=== PATIENT | male | born 1965 | race Caucasian/White ===

== ENCOUNTER 2020-04-07 06:15 | Outpatient (REF) | payer OTHER, SELFPAY | END 2020-04-07 06:16 | disposition home or self-care (01) | LOC: HO.LAB 06:15 | PROVIDERS: PCP Internal Medicine; Visit Provider Internal Medicine | DX: Z20.822 Contact with and (suspected) exposure to COVID-19 (principal) | CPT/HCPCS: 36415; C9803; U0003 ==

== ENCOUNTER 2020-04-30 09:16 | Outpatient (REF) | payer OTHER, SELFPAY | END 2020-04-30 09:17 | disposition home or self-care (01) | LOC: HO.LAB 09:16 | PROVIDERS: Visit Provider Internal Medicine | DX: Z20.822 Contact with and (suspected) exposure to COVID-19 (principal) | CPT/HCPCS: 36415; C9803; U0003; U0005 ==

== ENCOUNTER 2020-05-10 09:14 | Outpatient (REF) | payer OTHER, SELFPAY | END 2020-05-10 09:15 | disposition home or self-care (01) | LOC: HO.LAB 09:14 | PROVIDERS: Visit Provider Internal Medicine | DX: Z20.822 Contact with and (suspected) exposure to COVID-19 (principal) | CPT/HCPCS: 36415; C9803; U0003; U0005 ==

== ENCOUNTER → 2020-06-04 14:43 | Outpatient (BNVA) | payer OTHER, SELFPAY | PROVIDERS: PCP Internal Medicine; Visit Provider Internal Medicine ==

== ENCOUNTER → 2020-06-05 13:46 | Outpatient (BNVA) | payer OTHER, SELFPAY | PROVIDERS: PCP Internal Medicine; Visit Provider Nurse Practitioner Psychiatric/Mental Health | DX: F11.99 Opioid use, unspecified with unspecified opioid-induced disorder (principal) | CPT/HCPCS: 80305 ==

== ENCOUNTER → 2020-06-12 13:36 | Outpatient (BNVA) | payer OTHER, SELFPAY | PROVIDERS: PCP Internal Medicine; Visit Provider Nurse Practitioner Psychiatric/Mental Health | DX: F11.99 Opioid use, unspecified with unspecified opioid-induced disorder (principal) | CPT/HCPCS: 80305 ==

== ENCOUNTER 2020-06-14 08:18 | Outpatient (REF) | payer OTHER, SELFPAY ==
[2020-06-14 10:27] LABS: Alanine Aminotransferase 32 U/L (0-40); Albumin Level 4.1 g/dL (3.5-5.0); Alkaline Phosphatase 57 U/L (39-117); Aspartate Amino Transferase 41 U/L (5-37); Bilirubin Direct 0.3 mg/dL (0.0-0.5); Bilirubin Total 0.5 mg/dL (0.0-1.0); Total Protein 6.7 g/dL (6.5-8.0)
[2020-06-16 03:53] LABS: HBsAGNum1 0.19 S/CO (0.00-0.99); HIV AB/AG Nonreactive (Nonreactive); HIV Num 1 0.06 S/CO (0.00-0.99); Hepatitis B Surface Antigen Negative (Negative)
[2020-06-16 04:05] LABS: HBS Num1 5.43 mIU/mL (0-7.99); HBc Num1 0.88 S/CO (0.00-0.79); ~HepC Num1 0.08 S/CO (0.00-0.79); ~Hepatitis B Surface Antibody NONREACTIVE (Nonreactive); ~Hepatitis C Antibody Nonreactive (Nonreactive)
[2020-06-16 04:57] LABS: HBc Num2 0.88 S/CO; HBc Num3 0.91 S/CO; Hepatitis B Core Antibody Nonreactive (Nonreactive)
[2020-06-18 08:55] LABS: Hepatitis A Antibody IgM 0.11 Index (0-0.79); ~Hepatitis A Antibody IgM Nonreactive (Nonreactive)
== END 2020-06-14 08:19 | disposition home or self-care (01) ==
LOC: HO.LAB 08:18
PROVIDERS: PCP Internal Medicine; Visit Provider Nurse Practitioner Psychiatric/Mental Health
DX: Z79.899 Other long term (current) drug therapy (principal); Z11.3 Encounter for screening for infections with a predominantly sexual mode of transmission
CPT/HCPCS: 36415; 80076; 86704; 86706; 86709; 86803; 87340; 87389

== ENCOUNTER → 2020-06-19 13:49 | Outpatient (BNVA) | payer OTHER, SELFPAY | PROVIDERS: PCP Internal Medicine; Visit Provider Nurse Practitioner Psychiatric/Mental Health | DX: F11.90 Opioid use, unspecified, uncomplicated (principal); Z51.81 Encounter for therapeutic drug level monitoring | CPT/HCPCS: 80305 ==

== ENCOUNTER → 2020-06-26 10:49 | Outpatient (BNVA) | payer OTHER, SELFPAY | PROVIDERS: PCP Internal Medicine; Visit Provider Nurse Practitioner Psychiatric/Mental Health | DX: F11.99 Opioid use, unspecified with unspecified opioid-induced disorder (principal) | CPT/HCPCS: 80305 ==

== ENCOUNTER → 2020-06-27 11:01 | Outpatient (BNVA) | payer OTHER, SELFPAY | PROVIDERS: Visit Provider Internal Medicine ==

== ENCOUNTER → 2020-07-03 11:20 | Outpatient (BNVA) | payer OTHER, SELFPAY | PROVIDERS: Visit Provider Nurse Practitioner Psychiatric/Mental Health | DX: Z51.81 Encounter for therapeutic drug level monitoring (principal) | CPT/HCPCS: 80305 ==

== ENCOUNTER 2020-07-10 11:25 | Outpatient (REF) | payer OTHER, SELFPAY ==
[2020-07-10 15:33] LABS: MANUAL DIFF FLAG NO
[2020-07-10 15:39] LABS: Basophils Absolute Auto 0.1 X10*3/uL (0.0-0.2); Basophils Percent Auto 1.1 % (0-2); Eosinophils Absolute Auto 0.1 X10*3/uL (0.0-0.4); Eosinophils Percent Auto 1.5 % (0-4); Hematocrit 44.3 % (42-52); Hemoglobin 14.7 g/dl (14.0-18.0); Imm Gran Abs Auto 0.01 X10*3/uL (0.00-0.03); Imm Gran Pct Auto 0.2 % (0.0-0.4); Lymphocytes Absolute Auto 1.3 X10*3/uL (1.2-4.9); Lymphocytes Percent Auto 28.3 % (20-40); Mean Corpuscular HGB Conc 33.2 g/dl (31.0-36.0); Mean Corpuscular Hemoglobin 31.3 pg (27.0-33.0); Mean Corpuscular Volume 94.3 fL (80-98); Mean Platelet Volume 10.8 fL (9.4-12.4); Monocytes Absolute Auto 0.5 X10*3/uL (0.1-1.2); Monocytes Percent Auto 11.2 % (2-11); Neutrophils Absolute Auto 2.7 X10*3/uL (2.0-8.3); Neutrophils Percent Auto 57.7 % (45-73); Platelet Count 258 X10*3/uL (160-400); Red Cell Distribution Width 12.1 % (11.0-16.0); White Blood Count 4.7 X10*3/uL (4.8-10.8)
[2020-07-10 16:04] LABS: Alanine Aminotransferase 46 U/L (0-40); Albumin Level 4.6 g/dL (3.5-5.0); Alkaline Phosphatase 70 U/L (39-117); Anion Gap 14 (12-20); Aspartate Amino Transferase 39 U/L (5-37); Bilirubin Total 0.8 mg/dL (0.0-1.0); Blood Urea Nitrogen 19 mg/dL (9-16); Calcium 9.3 mg/dL (8.4-10.2); Carbon Dioxide 28 mmol/L (22-29); Chloride 101 mmol/L (96-108); Cholesterol 257 mg/dL; Estimated Glomerular Filt Rate > 60; Glucose Random 97 mg/dL (60-115); HDL Cholesterol 90 mg/dL; LDL Cholesterol Calculated 158 mg/dl; Potassium 4.2 mmol/L (3.3-5.1); Sodium 139 mmol/L (135-145); Total Protein 7.7 g/dL (6.5-8.0); Triglycerides 45 mg/dL
[2020-07-10 16:23] LABS: Free T4 (Free Thyroxine) 0.76 ng/dL (0.71-1.85); Prostate Specific Antigen Scr 0.51 ng/mL (<0.05-4.0); Thyroid Stimulating Hormone 0.54 uIU/mL (0.32-4.0)
[2020-07-10 16:32] LABS: Folate 15.3 ng/mL (> or = 4.0); Vitamin B12 391 pg/mL (200-900)
== END 2020-07-10 11:26 | disposition home or self-care (01) ==
LOC: HO.LAB 11:25
PROVIDERS: Absent Provider Internal Medicine; PCP Internal Medicine; Visit Provider Nurse Practitioner Psychiatric/Mental Health
DX: Z12.5 Encounter for screening for malignant neoplasm of prostate (principal); E78.00 Pure hypercholesterolemia, unspecified; I10 Essential (primary) hypertension; Z79.899 Other long term (current) drug therapy
CPT/HCPCS: 36415; 80053; 80061; 80305; 82607; 82746; 84153; 84439; 84443; 85025

== ENCOUNTER → 2020-07-24 11:35 | Outpatient (BNVA) | payer OTHER, SELFPAY | PROVIDERS: PCP Internal Medicine; Visit Provider Nurse Practitioner Psychiatric/Mental Health | DX: F11.99 Opioid use, unspecified with unspecified opioid-induced disorder (principal) | CPT/HCPCS: 80305 ==

== ENCOUNTER → 2020-08-08 11:40 | Outpatient (BNVA) | payer OTHER, SELFPAY | PROVIDERS: PCP Internal Medicine; Visit Provider Nurse Practitioner Psychiatric/Mental Health | DX: Z51.81 Encounter for therapeutic drug level monitoring (principal) | CPT/HCPCS: 80305 ==

== ENCOUNTER → 2020-08-14 11:17 | Outpatient (BNVA) | payer OTHER, SELFPAY | PROVIDERS: Visit Provider Nurse Practitioner Psychiatric/Mental Health ==

== ENCOUNTER → 2020-08-28 11:25 | Outpatient (BNVA) | payer OTHER, SELFPAY | PROVIDERS: Visit Provider Nurse Practitioner Psychiatric/Mental Health | DX: F11.99 Opioid use, unspecified with unspecified opioid-induced disorder (principal) | CPT/HCPCS: 80305 ==

== ENCOUNTER → 2020-09-11 10:37 | Outpatient (BNVA) | payer OTHER, SELFPAY | PROVIDERS: Visit Provider Nurse Practitioner Psychiatric/Mental Health | DX: Z51.81 Encounter for therapeutic drug level monitoring (principal); F11.99 Opioid use, unspecified with unspecified opioid-induced disorder | CPT/HCPCS: 80305 ==

== ENCOUNTER 2020-09-24 09:10 | Outpatient (REF) | payer OTHER, SELFPAY ==
--- NOTE | ~2020-09-24 | US_ITS ---
EXAMINATION: US ABDOMEN LIMITED CLINICAL INFORMATION: Elevated LFTs. COMPARISON: Renal ultrasound 09/03/2009. TECHNIQUE: Real-time imaging of the right upper quadrant abdominal viscera. FINDINGS: PANCREAS: Normal. LIVER: Normal. The liver is normal in size. The liver contour is normal. Parenchymal echogenicity is normal. No focal hepatic lesion. There is no intrahepatic biliary duct dilatation seen. GALLBLADDER: Gallbladder wall thickness of 0.24 cm. The gallbladder is physiologically distended without evidence of stones, sludge, polyps, wall thickening or pericholecystic fluid. COMMON BILE DUCT: Normal in caliber measuring 0.6 cm in diameter. RIGHT KIDNEY: No hydronephrosis or renal calculi. The kidney measures 13.0 cm in maximum dimension. There is a complex septated anechoic cyst lower pole measuring 5.2 x 3.9 x 3.3 cm. There is an echogenic lesion in the lower pole measuring 0.9 x 0.9 x 0.8 cm. FREE FLUID: None. US/US abdomen limited IMPRESSION: Complex septated cyst lower pole left kidney. 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
== END 2020-09-24 09:11 | disposition home or self-care (01) ==
LOC: HO.US 09:10
PROVIDERS: PCP Internal Medicine; Visit Provider Internal Medicine
DX: R79.89 Other specified abnormal findings of blood chemistry (principal)
CPT/HCPCS: 76705

== ENCOUNTER → 2020-09-25 10:56 | Outpatient (BNVA) | payer OTHER, SELFPAY | PROVIDERS: PCP Internal Medicine; Visit Provider Nurse Practitioner Psychiatric/Mental Health | DX: F11.99 Opioid use, unspecified with unspecified opioid-induced disorder (principal) | CPT/HCPCS: 80305 ==

== ENCOUNTER → 2020-10-09 11:41 | Outpatient (BNVA) | payer OTHER, SELFPAY | PROVIDERS: Visit Provider Nurse Practitioner Psychiatric/Mental Health | DX: Z51.81 Encounter for therapeutic drug level monitoring (principal); F11.99 Opioid use, unspecified with unspecified opioid-induced disorder | CPT/HCPCS: 80305 ==

== ENCOUNTER → 2020-10-30 11:45 | Outpatient (BNVA) | payer OTHER, SELFPAY | PROVIDERS: PCP Internal Medicine; Visit Provider Nurse Practitioner Psychiatric/Mental Health | DX: F11.99 Opioid use, unspecified with unspecified opioid-induced disorder (principal) | CPT/HCPCS: 80305 ==

== ENCOUNTER → 2020-11-20 11:46 | Outpatient (BNVA) | payer OTHER, SELFPAY | PROVIDERS: Visit Provider Nurse Practitioner Psychiatric/Mental Health | DX: F11.99 Opioid use, unspecified with unspecified opioid-induced disorder (principal); E78.00 Pure hypercholesterolemia, unspecified; I10 Essential (primary) hypertension; E55.9 Vitamin D deficiency, unspecified; F41.8 Other specified anxiety disorders | CPT/HCPCS: 80305 ==

== ENCOUNTER → 2020-12-11 10:58 | Outpatient (BNVA) | payer OTHER, SELFPAY | PROVIDERS: Visit Provider Nurse Practitioner Psychiatric/Mental Health | DX: F11.99 Opioid use, unspecified with unspecified opioid-induced disorder (principal); F41.8 Other specified anxiety disorders; M54.5 Low back pain; J44.9 Chronic obstructive pulmonary disease, unspecified; I10 Essential (primary) hypertension; E78.00 Pure hypercholesterolemia, unspecified; E55.9 Vitamin D deficiency, unspecified; Z51.81 Encounter for therapeutic drug level monitoring | CPT/HCPCS: 80305 ==

== ENCOUNTER → 2020-12-25 11:25 | Outpatient (BNVA) | payer OTHER, SELFPAY | PROVIDERS: PCP Internal Medicine ==

== ENCOUNTER 2020-12-31 10:41 | Outpatient (REF) | payer OTHER, SELFPAY ==
[2020-12-31 14:12] LABS: Blood Urea Nitrogen 13 mg/dL (9-16); Estimated Glomerular Filt Rate > 60
[2020-12-31 14:33] LABS: Prostate Specific Antigen Scr 0.28 ng/mL (<0.05-4.0)
== END 2020-12-31 10:42 | disposition home or self-care (01) ==
LOC: HO.10HDL 10:41
DX: Z12.5 Encounter for screening for malignant neoplasm of prostate (principal); N28.1 Cyst of kidney, acquired; R30.0 Dysuria
CPT/HCPCS: 36415; 82565; 84153; 84520

== ENCOUNTER → 2021-01-01 09:05 | Outpatient (BNVA) | payer OTHER, SELFPAY | PROVIDERS: Visit Provider Nurse Practitioner Psychiatric/Mental Health | DX: Z51.81 Encounter for therapeutic drug level monitoring (principal); F11.90 Opioid use, unspecified, uncomplicated | CPT/HCPCS: 80305 ==

== ENCOUNTER → 2021-01-29 08:57 | Outpatient (BNVA) | payer OTHER, SELFPAY | PROVIDERS: Visit Provider Nurse Practitioner Psychiatric/Mental Health | DX: F11.20 Opioid dependence, uncomplicated (principal); Z51.81 Encounter for therapeutic drug level monitoring; Z79.899 Other long term (current) drug therapy | CPT/HCPCS: 80305 ==

== ENCOUNTER → 2021-02-26 13:42 | Outpatient (BNVA) | payer OTHER, SELFPAY | PROVIDERS: Visit Provider Nurse Practitioner Psychiatric/Mental Health | DX: Z51.81 Encounter for therapeutic drug level monitoring (principal); F11.20 Opioid dependence, uncomplicated | CPT/HCPCS: 80305 ==

== ENCOUNTER → 2021-03-26 09:37 | Outpatient (BNVA) | payer OTHER, SELFPAY | PROVIDERS: Visit Provider Nurse Practitioner Psychiatric/Mental Health | DX: Z51.81 Encounter for therapeutic drug level monitoring (principal); F11.20 Opioid dependence, uncomplicated | CPT/HCPCS: 80305 ==

== ENCOUNTER → 2021-04-23 10:43 | Outpatient (BNVA) | payer OTHER, SELFPAY | PROVIDERS: Visit Provider Nurse Practitioner Psychiatric/Mental Health | DX: Z51.81 Encounter for therapeutic drug level monitoring (principal); F11.20 Opioid dependence, uncomplicated | CPT/HCPCS: 80305 ==

== ENCOUNTER 2021-05-13 13:18 | Outpatient (REF) | payer OTHER, SELFPAY ==
--- NOTE | ~2021-05-13 | US_ITS ---
EXAMINATION: US RETROPERITONEAL LIMITED (RENAL ONLY) CLINICAL INFORMATION: Renal cyst. COMPARISON: Ultrasound abdomen limited 09/24/2020. Ultrasound renal 09/03/2009. TECHNIQUE: Real-time imaging of the kidneys. FINDINGS: RIGHT KIDNEY: 12.8 x 4.7 x 6.2 cm (SAG x AP x TRV). The kidney is normal in size, contour, and echogenicity. Renal cortical thickness is normal. No renal calculi or hydronephrosis. A 4.7 x 2.8 x 2.8 cm cystic left lower pole renal mass with multiple, greater than 3 septations, previously 5.2 x 3.3 x 3.7 cm, slightly decreased in size. A 0.9 x 0.9 x 0.7 cm echogenic right lower pole renal mass, previously 0.9 x 0.8 x 0.9 cm not significantly changed in size. No internal vascularity was demonstrated on the prior ultrasound. LEFT KIDNEY: 11.8 x 6.4 x 5.7 cm (SAG x AP x TRV). The kidney is normal in size, contour, and echogenicity. Renal cortical thickness is normal. No focal parenchymal lesions or hydronephrosis. A 0.8 cm nonobstructing left lower pole renal stone. US/US renal BI IMPRESSION: A 4.2 cm cystic left lower pole renal mass with greater than 3 septations, slightly decreased in size from prior. Recommend annual follow-up ultrasound for a total of 5 years to assess stability. A 0.9 cm echogenic right renal mass with not definitely changed in size, which may reflect an angiomyolipoma. A new 0.8 cm nonobstructing left lower pole renal stone.
== END 2021-05-13 13:19 | disposition home or self-care (01) ==
LOC: HO.US 13:18
PROVIDERS: PCP Internal Medicine
DX: N28.1 Cyst of kidney, acquired (principal)
CPT/HCPCS: 76775

== ENCOUNTER → 2021-05-14 13:28 | Outpatient (BNVA) | payer OTHER, SELFPAY | PROVIDERS: Visit Provider Nurse Practitioner Psychiatric/Mental Health | DX: Z51.81 Encounter for therapeutic drug level monitoring (principal); F11.20 Opioid dependence, uncomplicated | CPT/HCPCS: 80305 ==

== ENCOUNTER → 2021-06-11 14:04 | Outpatient (BNVA) | payer OTHER, SELFPAY | PROVIDERS: Visit Provider Nurse Practitioner Psychiatric/Mental Health | DX: F11.20 Opioid dependence, uncomplicated (principal); Z51.81 Encounter for therapeutic drug level monitoring; Z79.899 Other long term (current) drug therapy | CPT/HCPCS: 80305 ==

== ENCOUNTER 2021-06-16 09:16 | Outpatient (REF) | payer OTHER, SELFPAY ==
[2021-06-16 09:48] LABS: MANUAL DIFF FLAG NO
[2021-06-16 10:04] LABS: Basophils Absolute Auto 0.1 X10*3/uL (0.0-0.2); Basophils Percent Auto 1.3 % (0-2); Eosinophils Absolute Auto 0.2 X10*3/uL (0.0-0.4); Eosinophils Percent Auto 5.2 % (0-4); Hematocrit 39.3 % (42.0-52.0); Hemoglobin 13.2 g/dl (14.0-18.0); Lymphocytes Absolute Auto 1.3 X10*3/uL (1.2-4.9); Lymphocytes Percent Auto 34.3 % (20-40); Mean Corpuscular HGB Conc 33.6 g/dl (31.0-36.0); Mean Corpuscular Hemoglobin 30.5 pg (27.0-33.0); Mean Corpuscular Volume 90.8 fL (80.0-98.0); Mean Platelet Volume 10.4 fL (9.4-12.4); Monocytes Absolute Auto 0.4 X10*3/uL (0.1-1.2); Monocytes Percent Auto 10.6 % (2-11); Neutrophils Absolute Auto 1.9 x10*3/uL (2.0-8.3); Neutrophils Percent Auto 48.6 % (45-73); Platelet Count 192 X10*3/uL (160-400); Red Blood Count 4.33 X10*6/uL (4.60-5.80); Red Cell Distribution Width 12.6 % (11.0-16.0); White Blood Count 3.9 X10*3/uL (4.8-10.8)
[2021-06-16 10:53] LABS: Gamma Glutamyl Transpeptidase 52 U/L (11-51)
[2021-06-16 11:03] LABS: Alanine Aminotransferase 26 U/L (0-40); Alkaline Phosphatase 64 U/L (39-117); Anion Gap 13 (12-20); Aspartate Amino Transferase 29 U/L (5-37); Bilirubin Total 0.7 mg/dL (0.0-1.0); Blood Urea Nitrogen 15 mg/dL (9-16); Calcium 9.5 mg/dL (8.4-10.2); Carbon Dioxide 28 mmol/L (22-29); Chloride 102 mmol/L (96-108); Cholesterol 189 mg/dL; Estimated Glomerular Filt Rate > 60; Glucose Random 104 mg/dL (60-115); HDL Cholesterol 69 mg/dL; LDL Cholesterol Calculated 108 mg/dl; Potassium 4.6 mmol/L (3.3-5.1); Sodium 138 mmol/L (135-145); Total Protein 6.8 g/dL (6.5-8.0); Triglycerides 60 mg/dL
[2021-06-16 11:24] LABS: Folate 13.5 ng/mL (> or = 4.0); Free T4 (Free Thyroxine) 0.78 ng/dL (0.71-1.85); Prostate Specific Antigen Scr 0.33 ng/mL (<0.05-4.0); Thyroid Stimulating Hormone 0.58 uIU/mL (0.32-4.0); Vitamin B12 342 pg/mL (200-900)
== END 2021-06-16 09:17 | disposition home or self-care (01) ==
LOC: HO.LAB 09:16
PROVIDERS: Nurse Practitioner Psychiatric/Mental Health; PCP Internal Medicine; Visit Provider Urology
DX: Z12.5 Encounter for screening for malignant neoplasm of prostate (principal); E78.00 Pure hypercholesterolemia, unspecified; I10 Essential (primary) hypertension; Z79.899 Other long term (current) drug therapy
CPT/HCPCS: 36415; 80053; 80061; 82607; 82746; 82977; 84153; 84439; 84443; 85025

== ENCOUNTER → 2021-06-24 12:51 | Outpatient (BNVA) | payer OTHER, SELFPAY | PROVIDERS: PCP Internal Medicine; Visit Provider Urology | DX: Z13.89 Encounter for screening for other disorder (principal) ==

== ENCOUNTER → 2021-07-09 14:05 | Outpatient (BNVA) | payer OTHER, SELFPAY | PROVIDERS: PCP Internal Medicine; Visit Provider Nurse Practitioner Psychiatric/Mental Health | DX: F11.99 Opioid use, unspecified with unspecified opioid-induced disorder (principal); M54.50 Low back pain, unspecified; J44.9 Chronic obstructive pulmonary disease, unspecified; I10 Essential (primary) hypertension; E78.00 Pure hypercholesterolemia, unspecified; E55.9 Vitamin D deficiency, unspecified; F41.8 Other specified anxiety disorders; Z51.81 Encounter for therapeutic drug level monitoring | CPT/HCPCS: 80305 ==

== ENCOUNTER → 2021-08-06 10:01 | Outpatient (BNVA) | payer OTHER, SELFPAY | PROVIDERS: PCP Internal Medicine; Visit Provider Nurse Practitioner Psychiatric/Mental Health | DX: Z51.81 Encounter for therapeutic drug level monitoring (principal); F11.20 Opioid dependence, uncomplicated | CPT/HCPCS: 80305 ==

== ENCOUNTER → 2021-09-03 11:17 | Outpatient (BNVA) | payer OTHER, SELFPAY | PROVIDERS: Visit Provider Nurse Practitioner Psychiatric/Mental Health | DX: Z51.81 Encounter for therapeutic drug level monitoring (principal); F11.21 Opioid dependence, in remission | CPT/HCPCS: 80305 ==

== ENCOUNTER → 2021-10-15 11:04 | Outpatient (BNVA) | payer OTHER, SELFPAY | PROVIDERS: PCP Internal Medicine; Visit Provider Nurse Practitioner Psychiatric/Mental Health | DX: Z51.81 Encounter for therapeutic drug level monitoring (principal); F11.21 Opioid dependence, in remission | CPT/HCPCS: 80305 ==

== ENCOUNTER 2021-10-19 12:25 | Outpatient (REF) | payer OTHER, SELFPAY ==
[2021-10-19 12:35] LABS: MANUAL DIFF FLAG NO
[2021-10-19 12:45] LABS: Basophils Percent Auto 0.5 % (0-2); Eosinophils Absolute Auto 0.2 X10*3/uL (0.0-0.4); Eosinophils Percent Auto 3.3 % (0-4); Hematocrit 40.2 % (42.0-52.0); Hemoglobin 13.6 g/dl (14.0-18.0); Imm Gran Abs Auto 0.01 X10*3/uL (0.00-0.03); Imm Gran Pct Auto 0.2 % (0.0-0.4); Immature Retic Fraction 7.1 % (2.3-13.4); Lymphocytes Absolute Auto 1.5 X10*3/uL (1.2-4.9); Lymphocytes Percent Auto 24.7 % (20-40); Mean Corpuscular HGB Conc 33.8 g/dl (31.0-36.0); Mean Corpuscular Hemoglobin 30.4 pg (27.0-33.0); Mean Corpuscular Volume 89.7 fL (80.0-98.0); Mean Platelet Volume 10.5 fL (9.4-12.4); Monocytes Absolute Auto 0.5 X10*3/uL (0.1-1.2); Monocytes Percent Auto 8.7 % (2-11); Neutrophils Absolute Auto 3.7 x10*3/uL (2.0-8.3); Neutrophils Percent Auto 62.6 % (45-73); Platelet Count 165 X10*3/uL (160-400); Red Blood Count 4.48 X10*6/uL (4.60-5.80); Red Cell Distribution Width 12.7 % (11.0-16.0); Retic HGB Equivalent 36.8 pg (30.0-35.0); Reticulocyte Percent 0.9 % (0.5-1.8); Reticulocytes Absolute 0.041 X10*6/uL (0.026-0.095)
[2021-10-19 13:11] LABS: Iron 115 mcg/dL (45-160); Percent Iron Saturation 33 % (15-50); Total Iron Binding Capacity 352 mcg/dL (228-428); Unsaturated Iron Binding 237 ug/dL
[2021-10-19 13:45] LABS: Folate 13.4 ng/mL (> or = 4.0); Vitamin B12 345 pg/mL (200-900)
[2021-10-19 13:50] LABS: Ferritin 193 ng/mL (20-250)
== END 2021-10-19 12:26 | disposition home or self-care (01) ==
LOC: HO.LAB 12:25
PROVIDERS: PCP Internal Medicine; Visit Provider Internal Medicine
DX: D64.9 Anemia, unspecified (principal)
CPT/HCPCS: 36415; 82607; 82728; 82746; 83540; 85025; 85045

== ENCOUNTER → 2022-01-05 09:49 | Outpatient (BNVA) | payer OTHER, SELFPAY | PROVIDERS: PCP Internal Medicine; Visit Provider Nurse Practitioner Psychiatric/Mental Health | DX: Z51.81 Encounter for therapeutic drug level monitoring (principal); F11.21 Opioid dependence, in remission | CPT/HCPCS: 80305 ==

== ENCOUNTER → 2022-03-02 09:48 | Outpatient (BNVA) | payer OTHER, SELFPAY | PROVIDERS: PCP Internal Medicine; Visit Provider Nurse Practitioner Psychiatric/Mental Health | DX: F11.21 Opioid dependence, in remission (principal); Z51.81 Encounter for therapeutic drug level monitoring; Z79.899 Other long term (current) drug therapy | CPT/HCPCS: 80305 ==

== ENCOUNTER → 2022-04-27 09:46 | Outpatient (BNVA) | payer OTHER, SELFPAY | PROVIDERS: PCP Internal Medicine; Visit Provider Nurse Practitioner Psychiatric/Mental Health | DX: Z51.81 Encounter for therapeutic drug level monitoring (principal); F11.21 Opioid dependence, in remission | CPT/HCPCS: 80305 ==

== ENCOUNTER → 2022-06-23 09:50 | Outpatient (BNVA) | payer OTHER, SELFPAY | PROVIDERS: PCP Internal Medicine; Visit Provider Nurse Practitioner Psychiatric/Mental Health | DX: F11.20 Opioid dependence, uncomplicated (principal); Z51.81 Encounter for therapeutic drug level monitoring; Z79.899 Other long term (current) drug therapy | CPT/HCPCS: 80305 ==

== ENCOUNTER → 2022-08-17 13:47 | Outpatient (BNVA) | payer OTHER, SELFPAY | PROVIDERS: PCP Internal Medicine; Visit Provider Nurse Practitioner Psychiatric/Mental Health | DX: Z51.81 Encounter for therapeutic drug level monitoring (principal); F11.21 Opioid dependence, in remission; Z79.899 Other long term (current) drug therapy | CPT/HCPCS: 80305 ==

== ENCOUNTER 2022-10-11 09:44 | Outpatient (AMB) | payer OTHER, SELFPAY ==
--- NOTE | 2022-10-11 09:47 | MHC.OFFVIS ---
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 Reports that he continues to do well with recovery. Denies any cravings. Reporting positive relationships with family. Still working full-time. No questions or concerns at this time. Stable on current Suboxone dose. [facility] Medical History Anxiety and depression COPD (chronic obstructive pulmonary disease) Hesitancy of micturition Hypercholesterolemia Hypertension Low back pain Opioid abuse Opioid use disorder Vitamin D deficiency Surgical History History of inguinal hernia repair Family History Father CHF (congestive heart failure) Hypertension CVD (cardiovascular disease) Mother Dementia Depression with anxiety Maternal Grandmother Diabetes Maternal Grandfather Cancer Brother In good health Son In good health Social History Housing: Apartment Alcohol intake: current Alcohol intake frequency: holidays/special occasions only Patient Tobacco Use Status: Never used Tobacco e-Cigarette/Vaping Use: Never Used Second Hand Smoke Exposure: No service: No Current occupational status: employed Cognitive needs: No Hearing needs: No Vision needs: No Review of Systems Const Reports as per HPI and Reports no additional complaints Physical Exam Vital Signs: Last Vital Signs Pulse 54 10/11/22 09:54 BP 136/88 10/11/22 09:54 Pulse Ox 98 10/11/22 09:54 Oxygen Delivery Method Room Air 10/11/22 09:54 Const General: cooperative and comfortable Nutritional Appearance: well nourished Orientation/consciousness: patient oriented x3 Limitations: no limitations Neuro General: patient oriented x3 Psych Appearance: grossly normal Mental Status: mental status grossly normal Speech and movement: Normal speech and movement present Affect: normal affect Attitude: cooperative Thought process: Normal thought process present Thought content: Normal thought content present Insight: Good insight present (Psych) Judgement: Good judgement present (Psych) Results AMB 14 Panel Urine Drug Screen Urine Marijuana (THC) Negative Last Edit by Diana Greene CMA on 10/11/22 09:56 Urine Cocaine Negative Last Edit by Diana Greene CMA on 10/11/22 09:56 Urine Morphine Negative Last Edit by Diana Greene CMA on 10/11/22 09:56 Urine Methamphetamine Negative Last Edit by Diana Greene CMA on 10/11/22 09:56 Urine Amphetamine Negative Last Edit by Diana Greene CMA on 10/11/22 09:56 Urine Benzodiazepine Negative Last Edit by Diana Greene CMA on 10/11/22 09:56 Urine Barbiturates Negative Last Edit by Diana Greene CMA on 10/11/22 09:56 Urine Methadone Negative Last Edit by Diana Greene CMA on 10/11/22 09:56 Urine Buprenorphine Positive Last Edit by Diana Greene CMA on 10/11/22 09:56 Urine Tricyclic Antidepressant Negative Last Edit by Diana Greene CMA on 10/11/22 09:56 Urine MDMA Negative Last Edit by Diana Greene CMA on 10/11/22 09:56 Urine Oxycodone Negative Last Edit by Diana Greene CMA on 10/11/22 09:56 Urine Phencyclidine Negative Last Edit by Diana Greene CMA on 10/11/22 09:56 Urine Propoxyphene Negative Last Edit by Diana Greene CMA on 10/11/22 09:56 Results Reviewed Results Reviewed: Laboratory Last Values POC Urine Buprenorphine Positive 10/11/22 09:50 POC Urine Morphine Negative 10/11/22 09:50 POC Urine Oxycodone Negative 10/11/22 09:50 POC Urine Methadone Negative 10/11/22 09:50 POC Urine Propoxyphene Negative 10/11/22 09:50 POC Urine Barbiturates Negative 10/11/22 09:50 POC U Tricyclic Antidpr Negative 10/11/22 09:50 POC Urine PCP Negative 10/11/22 09:50 POC Ur Amphetamines Negative 10/11/22 09:50 POC Ur Methamphetamine Negative 10/11/22 09:50 POC Urine MDMA Negative 10/11/22 09:50 POC Ur Benzodiazepine Negative 10/11/22 09:50 POC Urine Cocaine Negative 10/11/22 09:50 POC Ur Marijuana (THC) Negative 10/11/22 09:50 Assessment & Plan Assessment & Plan (1) Opioid use disorder, moderate, in sustained remission: Code(s): F11.21 - Opioid dependence, in remission Plan: Continue Suboxone at current dose Follow-up 3 months Encouraged to call office should he need anything before then Orders: Orders AMB 14 Panel Urine Drug Screen Today Z51.81 - Encounter for therapeutic drug level monitoring Medications: Refilled buprenorphine-naloxone 12-3 mg (Suboxone) 1 film buccal Q24H 30 ea 2RF Coding Level of Care Code Est Pt Level 3 (68670) Diagnoses Opioid use disorder, moderate, in sustained remission F11.21
[2022-10-11 09:54] VITALS: BP 136/88; PULSE 54; O2SAT 98
== END 2022-10-11 10:19 | disposition home or self-care (01) ==
LOC: HO.HCC 09:44
PROVIDERS: PCP Internal Medicine; Visit Provider Nurse Practitioner Psychiatric/Mental Health
DX: Z51.81 Encounter for therapeutic drug level monitoring (principal); F11.21 Opioid dependence, in remission
CPT/HCPCS: 99213

== ENCOUNTER → 2022-10-11 09:44 | Outpatient (BNVA) | payer OTHER, SELFPAY | PROVIDERS: PCP Internal Medicine; Visit Provider Nurse Practitioner Psychiatric/Mental Health | DX: F11.20 Opioid dependence, uncomplicated (principal); Z51.81 Encounter for therapeutic drug level monitoring | CPT/HCPCS: 80305 ==

== ENCOUNTER 2022-11-12 10:09 | Outpatient (AMB) | payer OTHER, SELFPAY ==
[2022-11-12 10:11] VITALS: BP 110/80; PULSE 61; O2SAT 98; BMI 25.2
--- NOTE | 2022-11-12 10:11 | MHC.PC.OV ---
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 Accompanied by: Self / Same As Patient Allergies No Known Allergies Allergy (Mild, Verified 11/12/22 11:07) NONE Medication List - Last Reconciled 11/12/22 by Artur Cornell MD buprenorphine-naloxone 12-3 mg (Suboxone) 1 film buccal Q24H sennosides (senna) 8.6 mg PO DAILY PRN tiotropium bromide 2.5 mcg/actuation (Spiriva Respimat) 2 puffs PO DAILY Tobacco use date assessed: 11/12/22 Dental Screening Dental Screen Date: 11/12/22 Did you have a dental visit in the last 12 months?: Yes Did you have a dental problem in the last 6 months where you did not have access to dental care?: No Was dental information given to patient?: Patient has dentist HPI Poison Jes HPI Details Patient comes in today complaining of a generalized itchy rash, especially on both of his forearms and hands, for the past 3 days 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 [employer] and often gets into contact with poison jes and poison kate Has had some recurrent rash and itching over the summer but states that those were mostly mild in severity but he started breaking out in a significant and extensive rash about 3 days ago that is much more severe than he has ever had before Recalls that he was 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 before he started breaking out like this States that the rash and itching has gradually gotten worse since and he now has some rash as well over his face and around his eyes and some of the rash on his forearms and hands are starting to weep States that he has not taken any medicines, including [id number] meds yet, as he was not sure what he should take He denies any fever, headaches or dizziness Denies any chest pains, no SOB No nausea/vomiting, no abdominal pain No change in bowel habits noted [facility] Medical History Anxiety and depression COPD (chronic obstructive pulmonary disease) Hesitancy of micturition Hypercholesterolemia Hypertension Low back pain Opioid abuse Opioid use disorder Vitamin D deficiency Surgical History History of inguinal hernia repair Family History Father CHF (congestive heart failure) Hypertension CVD (cardiovascular disease) Mother Dementia Depression with anxiety Maternal Grandmother Diabetes Maternal Grandfather Cancer Brother In good health Son In good health Social History Housing: Apartment Alcohol intake: current Alcohol intake frequency: holidays/special occasions only Patient Tobacco Use Status: Never used Tobacco e-Cigarette/Vaping Use: Never Used Second Hand Smoke Exposure: No service: No Current occupational status: employed Cognitive needs: No Hearing needs: No Vision needs: No Questionnaire PHQ-9 Over the last 2 weeks, how often have you been bothered by any of the following problems? 1. Little interest or pleasure in doing things: several days 2. Feeling down, depressed, or hopeless: several days 3. Trouble falling or staying asleep, or sleeping too much: not at all 4. Feeling tired or having little energy: not at all 5. Poor appetite or overeating: not at all 6. Feeling bad about yourself - or that you are a failure or have let yourself or your family down: not at all 7. Trouble concentrating on things, such as reading the newspaper or watching television: not at all 8. Moving or speaking so slowly that other people could have noticed. Or the opposite - being so fidgety or restless that you have been moving around a lot more than usual: not at all 9. Thoughts that you would be better off or of hurting yourself in some way: not at all Total score: 2 Depression Screening Interpretation: Negative 30239 - PHQ-9 Billing: Yes Source: Developed by Drs. Brooks Peña, Bella Sanchez, Miguel Moreno and colleagues, with an educational janki from [employer]. Thrive Questionnaire Date Thrive assessed: 11/12/22 I am a: Patient What is your living situation today?: I have a steady place to live Within the past 12 months, did the food you bought not last and you didn't have the money to get more?: Never true Within the past 12 months, did you worry whether your food would run out before you got money to buy more?: Never true Do you have trouble paying for medicines?: No Do you have trouble getting transportation to medical appointments?: No Do you have trouble paying your heating and electricity bill?: No Do you have trouble taking care of your child, family member or friend?: No Do you have trouble with day-to-day activities such as bathing, preparing meals, shopping, managing finances, etc.?: No Are you currently unemployed and looking for a job?: No Are you interested in more education?: No Please select the resources that you would like help with: None Currently or been in a relationship where the following occur: no concerns reported AUDIT C Alcohol Use Questionnaire (AUDIT-C) 1. How often do you have a drink containing alcohol?: 4 or more times a week 2. How many drinks containing alcohol do you have on a typical day when you are drinking?: 1 or 2 3. How often do you have six or more drinks on one occasion?: Never Total Score: 4 Score Reviewed/Action Taken: Yes SAMIRA-7 AMB Questionnaire SAMIRA-7 Date SAMIRA - 7 assessed: 11/12/22 Feeling nervous, anxious, or on edge: 0 = Not at all Not being able to stop or control worryin = Not at all Worrying too much about different things: 0 = Not at all Trouble relaxin = Not at all Being so restless that it is hard to sit still: 0 = Not at all Becoming easily annoyed or irritable: 0 = Not at all Feeling afraid as if something awful might happen: 0 = Not at all Total SAMIRA-7 score (0-4 normal; 5-9 mild; 10-14 moderate; 15-21 severe): 0 Source: Developed by Drs. Brooks Peña, Bella Sanchez, Miguel Moreno and colleagues, with an educational janki from [employer]. Review of Systems Const Denies fatigue, Denies fever(s) and Denies headache(s) ENT Denies dysphagia, Denies dizziness, Denies headache(s), Denies odynophagia and Denies sore throat Card Denies chest pain, Denies palpitations and Denies dyspnea Resp Denies cough and Denies dyspnea GI Denies abdominal pain, Reports constipation (controlled on Rx), Denies dysphagia, Denies diarrhea, Denies nausea, Denies odynophagia and Denies vomiting Denies dysuria Skin/Breast Reports rash (see HPI for details) Neuro Denies dizziness and Denies headache(s) Endo Denies fatigue and Denies palpitations Physical exam (Primary Care) Vital Signs: Last Vital Signs Pulse 61 11/12/22 10:11 BP 110/80 11/12/22 10:11 Pulse Ox 98 11/12/22 10:11 Oxygen Delivery Method Room Air 11/12/22 10:11 BMI result Body Mass Index 25.2 Tobacco/Smoking Status: Tobacco use Status Tobacco use date assessed 11/12/22 11/12/22 10:13 Patient Tobacco Use Status Never used Tobacco 11/12/22 10:13 e-Cigarette/Vaping Use Never Used 11/12/22 10:13 PHQ-9: PHQ-9 Score PHQ-9: Total score 2 11/12/22 10:13 Depression Screening Interpretation: Negative Thrive Assessment: Date of Thrive Assessment Date Thrive assessed 11/12/22 11/12/22 10:13 Currently or been in a relationship where the following occur: no concerns reported Const General: no acute distress and alert Neck Neck: Yes no lymphadenopathy and Yes supple Resp Auscultation: clear to auscultation bilaterally, no rales and no wheezes Cardio Rate: regular rate Rhythm: regular rhythm Heart sounds: no murmurs GI Palpation (GI): Soft to palpation and nontender Auscultation: normal bowel sounds Skin Other: (+) scattered erythematous, pruritic and some scaling lesions around the eyes, over the face/cheeks and more extensively over both forearms and hands, with some weeping/oozing of clear fluids from some of the lesions of the forearms Extrem General: Yes no clubbing, cyanosis or edema Assessment and Plan Assessment & Plan (1) Contact dermatitis due to poison jes: Code(s): L23.7 - Allergic contact dermatitis due to plants, except food Plan: Will start patient on oral Prednisone taper as well as Hydroxyzine 25 mg TID PRN Is cautioned that Hydroxyzine may be sedating so he should avoid taking it 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 [employer] business Instructed to call if his symptoms do not improve significantly with Rx by next week Plan To return as scheduled in January 2023 for his next annual PE with his PCP Medications: New prednisone 4 tablets x 2 days, then 3 tablets x 2 days, then 2 tablets x 2 days, then 1 tablet x 2 days 8 days 20 tabs 0RF J45.901 - Unspecified asthma with (acute) exacerbation, M25.50 - Pain in unspecified joint hydroxyzine HCl May cause drowsiness 25 mg PO TID 30 days PRN 90 tabs 0RF rash/itching Coding Level of Care Code Est Pt Level 3 (64221) Diagnoses Contact dermatitis due to poison jes L23.7
== END 2022-11-12 11:10 | disposition home or self-care (01) ==
PROVIDERS: PCP Internal Medicine; Visit Provider Internal Medicine
DX: L23.7 Allergic contact dermatitis due to plants, except food (principal)
CPT/HCPCS: 99213

== ENCOUNTER 2023-01-04 09:45 | Outpatient (AMB) | payer OTHER, SELFPAY ==
--- NOTE | 2023-01-04 09:49 | MHC.OFFVIS ---
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 No questions or concerns at this time. Discussed alcohol use, pt reports drinking 2-3 drinks per week. [facility] Medical History Anxiety and depression COPD (chronic obstructive pulmonary disease) Hesitancy of micturition Hypercholesterolemia Hypertension Low back pain Opioid abuse Opioid use disorder Vitamin D deficiency Surgical History History of inguinal hernia repair Family History Father CHF (congestive heart failure) Hypertension CVD (cardiovascular disease) Mother Dementia Depression with anxiety Maternal Grandmother Diabetes Maternal Grandfather Cancer Brother In good health Son In good health Social History Housing: Apartment Alcohol intake: current Alcohol intake frequency: holidays/special occasions only Patient Tobacco Use Status: Never used Tobacco e-Cigarette/Vaping Use: Never Used Second Hand Smoke Exposure: No service: No Current occupational status: employed Cognitive needs: No Hearing needs: No Vision needs: No Review of Systems Const Reports as per HPI Physical Exam Vital Signs: Last Vital Signs Pulse 55 01/04/23 09:54 BP 136/84 01/04/23 09:54 Pulse Ox 96 01/04/23 09:54 Oxygen Delivery Method Room Air 01/04/23 09:54 Const General: cooperative and comfortable Nutritional Appearance: well nourished Orientation/consciousness: patient oriented x3 Limitations: no limitations Neuro General: patient oriented x3 Psych Appearance: grossly normal Mental Status: mental status grossly normal Speech and movement: Normal speech and movement present Affect: normal affect Attitude: cooperative Thought process: Normal thought process present Thought content: Normal thought content present Insight: Good insight present (Psych) Judgement: Good judgement present (Psych) Results AMB 14 Panel Urine Drug Screen Urine Marijuana (THC) Negative Last Edit by Diana Greene CMA on 01/04/23 09:56 Urine Cocaine Negative Last Edit by Diana Greene CMA on 01/04/23 09:56 Urine Morphine Negative Last Edit by Diana Greene CMA on 01/04/23 09:56 Urine Methamphetamine Negative Last Edit by Diana Greene CMA on 01/04/23 09:56 Urine Amphetamine Negative Last Edit by Diana Greene CMA on 01/04/23 09:56 Urine Benzodiazepine Negative Last Edit by Diana Greene CMA on 01/04/23 09:56 Urine Barbiturates Negative Last Edit by Diana Greene CMA on 01/04/23 09:56 Urine Methadone Negative Last Edit by Diana Greene CMA on 01/04/23 09:56 Urine Buprenorphine Positive Last Edit by Diana Greene CMA on 01/04/23 09:56 Urine Tricyclic Antidepressant Negative Last Edit by Diana Greene CMA on 01/04/23 09:56 Urine MDMA Negative Last Edit by Diana Greene CMA on 01/04/23 09:56 Urine Oxycodone Negative Last Edit by Diana Greene CMA on 01/04/23 09:56 Urine Phencyclidine Negative Last Edit by Diana Greene CMA on 01/04/23 09:56 Urine Propoxyphene Negative Last Edit by Diana Greene CMA on 01/04/23 09:56 Results Reviewed Results Reviewed: Laboratory Last Values POC Urine Buprenorphine Positive 01/04/23 09:50 POC Urine Morphine Negative 01/04/23 09:50 POC Urine Oxycodone Negative 01/04/23 09:50 POC Urine Methadone Negative 01/04/23 09:50 POC Urine Propoxyphene Negative 01/04/23 09:50 POC Urine Barbiturates Negative 01/04/23 09:50 POC U Tricyclic Antidpr Negative 01/04/23 09:50 POC Urine PCP Negative 01/04/23 09:50 POC Ur Amphetamines Negative 01/04/23 09:50 POC Ur Methamphetamine Negative 01/04/23 09:50 POC Urine MDMA Negative 01/04/23 09:50 POC Ur Benzodiazepine Negative 01/04/23 09:50 POC Urine Cocaine Negative 01/04/23 09:50 POC Ur Marijuana (THC) Negative 01/04/23 09:50 Assessment & Plan Assessment & Plan (1) Opioid use disorder, moderate, in sustained remission: Code(s): F11.21 - Opioid dependence, in remission Plan: Continue suboxone at current dose. Follow up 3 months Encouraged to call office or walk in should he need to be seen sooner. Orders: Orders AMB 14 Panel Urine Drug Screen Today Z51.81 - Encounter for therapeutic drug level monitoring Medications: Refilled buprenorphine-naloxone 12-3 mg (Suboxone) 1 film buccal Q24H 30 ea 2RF Coding Level of Care Code Est Pt Level 3 (20893) Diagnoses Opioid use disorder, moderate, in sustained remission F11.21
[2023-01-04 09:54] VITALS: BP 136/84; PULSE 55; O2SAT 96
== END 2023-01-04 10:55 | disposition home or self-care (01) ==
PROVIDERS: PCP Internal Medicine; Visit Provider Nurse Practitioner Psychiatric/Mental Health
DX: F11.21 Opioid dependence, in remission (principal); Z51.81 Encounter for therapeutic drug level monitoring
CPT/HCPCS: 99213

== ENCOUNTER → 2023-01-04 09:45 | Outpatient (BNVA) | payer OTHER, SELFPAY | PROVIDERS: PCP Internal Medicine; Visit Provider Nurse Practitioner Psychiatric/Mental Health | DX: F11.20 Opioid dependence, uncomplicated (principal) | CPT/HCPCS: 80305 ==

== ENCOUNTER 2023-01-27 13:40 | Outpatient (AMB) | payer OTHER, SELFPAY ==
[2023-01-27 13:44] VITALS: BP 138/82; PULSE 83; O2SAT 100; BMI 25.7
--- NOTE | 2023-01-27 13:44 | A.OFFPC_ITS ---
Vital Signs 01/27/23 13:44 Height 5 ft 9 in Weight 174 lb BMI 25.7 BP 138/82 Blood Pressure Location Lt brachial Position Sitting Pulse 83 Pulse Source Pulse Oximeter Pulse Oximetry (%) 100 Oxygen Delivery Method Room Air Intake Visit Reasons: Annual Exam Allergies No Known Allergies Allergy (Mild, Verified 01/27/23 13:44) NONE Medication List - Last Reconciled 01/27/23 by Mc Ruiz MD buprenorphine-naloxone 12-3 mg (Suboxone) 1 film buccal Q24H tiotropium bromide 2.5 mcg/actuation (Spiriva Respimat) 2 puffs PO DAILY Tobacco use date assessed: 11/12/22 Dental Screening Dental Screen Date: 01/27/23 Did you have a dental visit in the last 12 months?: Yes Did you have a dental problem in the last 6 months where you did not have access to dental care?: No Was dental information given to patient?: Patient has dentist HPI Annual Exam HPI Details 57-year-old male with hypercholesterolem ia and COPD, hypertension polysubstance abuse coming in for physical exam. Last seen in January 2022. Colonoscopy is up-to-date February 2019 tubular adenoma repeat in 5 years. Patient follows up with compressive care on Suboxone PFSH Medical History Anxiety and depression COPD (chronic obstructive pulmonary disease) Hesitancy of micturition Hypercholesterolemia Hypertension Low back pain Opioid abuse Opioid use disorder Vitamin D deficiency Surgical History History of inguinal hernia repair Family History (Updated 01/27/23 @ 13:46 by Kathrine Alegria CMA) Father CHF (congestive heart failure) Hypertension CVD (cardiovascular disease) Mother Dementia Depression with anxiety Maternal Grandmother Diabetes Maternal Grandfather Cancer Brother In good health Son In good health Social History (Updated 01/27/23 @ 14:19 by Mc Ruiz MD) Housing: Apartment Alcohol intake: current Alcohol intake frequency: holidays/special occasions o nly Patient Tobacco Use Status: Never used Tobacco e-Cigarette/Vaping Use: Never Used Second Hand Smoke Exposure: No service: No Current occupational status: employed Cognitive needs: No Hearing needs: No Vision needs: Yes Questionnaire PHQ-9 Over the last 2 weeks, how often have you been bothered by any of the following problems? 1. Little interest or pleasure in doing things: several days 2. Feeling down, depressed, or hopeless: several days 3. Trouble falling or staying asleep, or sleeping too much: not at all 4. Feeling tired or having little energy: not at all 5. Poor appetite or overeating: not at all 6. Feeling bad about yourself - or that you are a failure or have let yourself or your family down: not at all 7. Trouble concentrating on things, such as reading the newspaper or watching television: not at all 8. Moving or speaking so slowly that other people could have noticed. Or the opposite - being so fidgety or restless that you have been moving around a lot more than usual: not at all 9. Thoughts that you would be better off or of hurting yourself in some way: not at all Total score: 2 Depression Screening Interpretation: Negative Depression Screening Done: Yes 92366 - PHQ-9 Billing: Yes Source: Developed by Drs. Brooks Peña, Bella Sanchez, Miguel Moreno and colleagues, with an educational janki from [employer]. Thrive Questionnaire Date Thrive assessed: 11/12/22 AUDIT C Alcohol Use Questionnaire (AUDIT-C) 1. How often do you have a drink containing alcohol?: 4 or more times a week 2. How many drinks containing alcohol do you have on a typical day when you are drinking?: 1 or 2 3. How often do you have six or more drinks on one occasion?: Never Total Score: 4 Score Reviewed/Action Taken: Yes SAMIRA-7 AMB Questionnaire SAMIRA-7 Date SAMIRA - 7 assessed: 11/12/22 Source: Developed by Drs. Brooks Peña, Bella Sanchez, Miguel Moreno and colleagues, with an educational janki from [employer]. Review of Systems Const Denies poor appetite and Denies weakness Eyes Denies no additional complaints ENT Reports Normal hearing present, Denies dizziness, Denies nasal congestion, Denies tinnitus and Denies sore throat Card Denies chest pain, Denies syncope, Denies rapid heart rate and Denies dyspnea Resp Denies cough and Denies dyspnea GI Denies change in stool character, Reports constipation, Denies diarrhea, Denies nausea and Denies vomiting Denies dysuria and Denies urinary frequency Neuro Reports Normal hearing present, Denies confusion, Denies dizziness, Denies syncope and Denies weakness Psych Denies confusion Physical exam (Primary Care) Vital Signs: Last Vital Signs Pulse 83 01/27/23 13:44 BP 138/82 01/27/23 13:44 Pulse Ox 100 01/27/23 13:44 Oxygen Delivery Method Room Air 01/27/23 13:44 BMI result Body Mass Index 25.7 Tobacco/Smoking Status: Tobacco use Status Tobacco use date assessed 11/12/22 01/27/23 13:49 Patient Tobacco Use Status Never used Tobacco 01/27/23 13:49 e-Cigarette/Vaping Use Never Used 01/27/23 13:49 PHQ-9: PHQ-9 Score PHQ-9: Total score 2 01/27/23 13:49 Depression Screening Interpretation: Negative Thrive Assessment: Date of Thrive Assessment Date Thrive assessed 11/12/22 01/27/23 13:49 Const General: No confusion Orientation/consciousness: No confusion HENMT Head: Yes normocephalic Ears: external ears normal and TM's normal bilaterally Face and sinus: Yes normal facial exam Mouth: moist mucous membranes Throat: Yes tonsils normal Eyes Conjunctivae: conjunctivae normal Pupils: Equal, round and reactive pupils present and Pupil accommodation reflex normal Direct Ophthalmoscopy: normal light reflex Neck Neck: No lymphadenopathy Thyroid: Thyroid normal Chest Chest palpation & inspection: normal inspection of the chest Resp Effort & Inspection: normal respiratory effort and no audible wheezes Auscultation: clear to auscultation bilaterally, no crackles, no wheezes and lung sounds not diminished Cardio Rate: regular rate Rhythm: regular rhythm Peripheral pulses: radial pulses present and dorsalis pedis present GI Other: guaiac negative , prostate negative Palpation (GI): no masses Auscultation: normal bowel sounds and normoactive bowel sounds Male General Exam: Yes normal external exam Skin General skin exam: no rashes or lesions noted Rashes: no rashes Neuro General: No confusion Cranial nerves: Yes Equal, round and reactive pupils present and Yes Normal hearing present Cognition (Neuro): normal cognition Gait exam (Neuro): Normal gait present Motor exam (neuro): 5/5 motor strength present throughout Deep tendon reflexes (DTR's): Right brachioradialis reflex intensity grade: 2+, Left brachioradialis reflex intensity grade: 2+, Right patellar reflex intensity grade: 2+ and Left patellar reflex intensity grade: 2+ Extrem General: No edema Assessment and Plan Assessment & Plan (1) Annual physical exam: Code(s): Z00.00 - Encounter for general adult medical examination without abnormal findings (2) Hypertension: Code(s): I10 - Essential (primary) hypertension Qualifiers: Hypertension type: essential hypertension Qualified Code(s): I10 - Essential (primary) hypertension Plan: Continue with blood pressure medication. Decrease salt intake and exercise blood pressure has been good without medications (3) COPD (chronic obstructive pulmonary disease): Code(s): J44.9 - Chronic obstructive pulmonary disease, unspecified Qualifiers: COPD type: emphysema Emphysema type: panlobular Qualified Code(s): J43.1 - Panlobular emphysema Plan: Stable not needing an inhaler (4) Hypercholesterolemia: Code(s): E78.00 - Pure hypercholesterolemia, unspecified Plan: Avoid fried foods, chicken skin, eggs, butter margarine, pastries and meat. Be it pork or beef they have a lot of cholesterol LDL goal of less than 130 and triglyceride less than 150 (5) Anemia: Code(s): D64.9 - Anemia, unspecified Plan: Stable (6) Opioid use disorder, moderate, in sustained remission: Code(s): F11.21 - Opioid dependence, in remission Plan: Continue to follow-up with comprehensive care Orders: Orders Thyroid Stimulating Hormone Today E78.00 - Pure hypercholesterolemia, unspecified Vitamin B12 and Folate Today E78.00 - Pure hypercholesterolemia, unspecified Lipid Panel Today E78.00 - Pure hypercholesterolemia, unspecified Complete Blood Count Auto Diff Today E78.00 - Pure hypercholesterolemia, unspecified Comprehensive Met. Panel Today E78.00 - Pure hypercholesterolemia, unspecified Free T4 (Free Thyroxine) Today E78.00 - Pure hypercholesterolemia, unspecified Prostate Specific Antigen Scr Today E78.00 - Pure hypercholesterolemia, unspecified Coding Level of Care Code Est Pt Prev Care 40-64y(79744) Diagnoses Annual physical exam Z00.00 Essential hypertension I10 Hypertension type: essential hypertension Panlobular emphysema J43.1 COPD type: emphysema Emphysema type: panlobular Hypercholesterolemia E78.00 Anemia D64.9 Opioid use disorder, moderate, in sustained remission F11.21
== END 2023-01-27 14:33 | disposition home or self-care (01) ==
PROVIDERS: PCP Internal Medicine; Visit Provider Internal Medicine
DX: Z00.00 Encounter for general adult medical examination without abnormal findings (principal); J43.1 Panlobular emphysema; F11.21 Opioid dependence, in remission; I10 Essential (primary) hypertension; E78.00 Pure hypercholesterolemia, unspecified; D64.9 Anemia, unspecified
CPT/HCPCS: 99396

== ENCOUNTER 2023-03-29 08:55 | Outpatient (AMB) | payer OTHER, SELFPAY ==
[2023-03-29 09:00] VITALS: BP 150/80; PULSE 50; RESP 20; O2SAT 99
--- NOTE | 2023-03-29 11:33 | A.OFFVISCC_ITS ---
Intake Vital Signs 03/29/23 09:00 BP 150/80 H Blood Pressure Location Lt brachial Position Sitting Respiration 20 Pulse 50 Pulse Source Pulse Oximeter Pulse Oximetry (%) 99 Oxygen Delivery Method Room Air Intake Visit Reasons: MAT Visit Allergies No Known Allergies Allergy (Mild, Verified 01/27/23 13:44) NONE HPI MAT Visit HPI Details Patient presents for follow up Currently prescribed Suboxone 12mg QD (takes 6mg BID) Doing well with recovery. No questions or concerns at this time [facility] Medical History Anxiety and depression COPD (chronic obstructive pulmonary disease) Hesitancy of micturition Hypercholesterolemia Hypertension Low back pain Opioid abuse Opioid use disorder Vitamin D deficiency Surgical History History of inguinal hernia repair Family History (Updated 01/27/23 @ 13:46 by Kathrine Alegria CMA) Father CHF (congestive heart failure) Hypertension CVD (cardiovascular disease) Mother Dementia Depression with anxiety Maternal Grandmother Diabetes Maternal Grandfather Cancer Brother In good health Son In good health Social History (Updated 01/27/23 @ 14:19 by Mc Ruiz MD) Housing: Apartment Alcohol intake: current Alcohol intake frequency: holidays/special occasions only Patient Tobacco Use Status: Never used Tobacco e-Cigarette/Vaping Use: Never Used Second Hand Smoke Exposure: No service: No Current occupational status: employed Cognitive needs: No Hearing needs: No Vision needs: Yes Review of Systems Const Reports as per HPI and Reports no additional complaints Physical Exam Vital Signs: Last Vital Signs Pulse 50 03/29/23 09:00 Resp 20 03/29/23 09:00 BP 150/80 H 03/29/23 09:00 Pulse Ox 99 03/29/23 09:00 Oxygen Delivery Method Room Air 03/29/23 09:00 Const General: cooperative and comfortable Nutritional Appearance: well nourished Orientation/consciousness: patient oriented x3 Limitations: no limitations Neuro General: patient oriented x3 Psych Appearance: grossly normal Mental Status: mental status grossly normal Speech and movement: Normal speech and movement present Affect: normal affect Attitude: cooperative Thought process: Normal thought process present Thought content: Normal thought content present Insight: Good insight present (Psych) Judgement: Good judgement present (Psych) Assessment & Plan Assessment & Plan (1) Opioid use disorder, moderate, in sustained remission: Code(s): F11.21 - Opioid dependence, in remission Plan: Continue suboxone at current dose. Follow up 3 months Encouraged to call office or walk in should he need to be seen sooner. Medications: Refilled buprenorphine-naloxone 12-3 mg (Suboxone) 1 film buccal Q24H 30 ea 2RF Coding Level of Care Code Est Pt Level 3 (96785) Diagnoses Opioid use disorder, moderate, in sustained remission F11.21
== END 2023-03-29 09:26 | disposition home or self-care (01) ==
PROVIDERS: PCP Internal Medicine; Visit Provider Nurse Practitioner Psychiatric/Mental Health
DX: F11.21 Opioid dependence, in remission (principal)
CPT/HCPCS: 99213

== ENCOUNTER → 2023-03-29 08:55 | Outpatient (BNVA) | payer OTHER, SELFPAY | PROVIDERS: PCP Internal Medicine; Visit Provider Nurse Practitioner Psychiatric/Mental Health | DX: Z51.81 Encounter for therapeutic drug level monitoring (principal); F11.21 Opioid dependence, in remission ==

== ENCOUNTER 2023-06-23 10:15 | Outpatient (AMB) | payer OTHER, SELFPAY ==
[2023-06-23 10:25] VITALS: BP 140/82; PULSE 65; O2SAT 99
--- NOTE | 2023-06-23 10:25 | A.OFFVISCC_ITS ---
Intake Vital Signs 06/23/23 10:25 BP 140/82 H Blood Pressure Location Lt radial Position Sitting Pulse 65 Pulse Source Pulse Oximeter Pulse Oximetry (%) 99 Oxygen Delivery Method Room Air Intake Visit Reasons: MAT Intake Note: themaninderennt presents for a mat visit [employer] Required: No Allergies No Known Allergies Allergy (Mild, Verified 06/23/23 10:26) NONE Do you need a note to return to daycare/school/sports/work: No HPI MAT HPI Details Pt presents for OUD treatment follow up Currently being prescribed Suboxone 12mg daily Denies any side effects related to medication No issues related to recovery Spending time outside, running, time with sons Recent break up (unexpected) Reflected on coping strategies including reaching out to family [facility] Medical History Anxiety and depression COPD (chronic obstructive pulmonary disease) Hesitancy of micturition Hypercholesterolemia Hypertension Low back pain Opioid abuse Opioid use disorder Vitamin D deficiency Surgical History History of inguinal hernia repair Family History (Updated 01/27/23 @ 13:46 by Kathrine Alegria CMA) Father CHF (congestive heart failure) Hypertension CVD (cardiovascular disease) Mother Dementia Depression with anxiety Maternal Grandmother Diabetes Maternal Grandfather Cancer Brother In good health Son In good health Social History (Updated 01/27/23 @ 14:19 by Mc Ruiz MD) Housing: Apartment Alcohol intake: current Alcohol intake frequency: holidays/special occasions only Patient Tobacco Use Status: Never used Tobacco e-Cigarette/Vaping Use: Never Used Second Hand Smoke Exposure: No service: No Current occupational status: employed Cognitive needs: No Hearing needs: No Vision needs: Yes Review of Systems Const Reports as per HPI Physical Exam Vital Signs: Last Vital Signs Pulse 65 06/23/23 10:25 BP 140/82 H 06/23/23 10:25 Pulse Ox 99 06/23/23 10:25 Oxygen Delivery Method Room Air 06/23/23 10:25 Const General: cooperative and comfortable Nutritional Appearance: well nourished Orientation/consciousness: patient oriented x3 Limitations: no limitations Neuro General: patient oriented x3 Psych Appearance: grossly normal Mental Status: mental status grossly normal Speech and movement: Normal speech and movement present Affect: normal affect Attitude: cooperative Thought process: Normal thought process present Thought content: Normal thought content present Insight: Good insight present (Psych) Judgement: Good judgement present (Psych) Assessment & Plan Assessment & Plan (1) Opioid use disorder, moderate, in sustained remission: Code(s): F11.21 - Opioid dependence, in remission Plan: Continue suboxone at current dose. Follow up 3 months Encouraged to call office or walk in should he need to be seen sooner. Medications: Refilled buprenorphine-naloxone 12-3 mg (Suboxone) 1 film buccal Q24H 30 ea 2RF Coding Level of Care Code Est Pt Level 3 (53702) Diagnoses Opioid use disorder, moderate, in sustained remission F11.21
== END 2023-06-23 11:02 | disposition home or self-care (01) ==
PROVIDERS: PCP Internal Medicine; Visit Provider Nurse Practitioner Psychiatric/Mental Health
DX: F11.21 Opioid dependence, in remission (principal)
CPT/HCPCS: 99213

== ENCOUNTER → 2023-06-23 10:15 | Outpatient (BNVA) | payer OTHER, SELFPAY | PROVIDERS: PCP Internal Medicine; Visit Provider Nurse Practitioner Psychiatric/Mental Health ==

== ENCOUNTER 2023-09-19 09:58 | Outpatient (AMB) | payer OTHER, SELFPAY ==
--- NOTE | 2023-09-19 10:37 | MHC.AM.SUB ---
Intake Visit Reasons: MAT Allergies No Known Allergies Allergy (Mild, Verified 06/23/23 10:26) NONE HPI HPI MAT: Details: Patient presents for follow up Reporting stressful couple of weeks related to someone new he is seeing. Has noticed that he has actually been taking more suboxone than prescribed and drinking a bit more often that he normally does. Spent time during visit processing and reflecting on impact this individual has had on his recovery and overall mental health Patient acknowledges these challenges and able to reflect back that he does not wish to continue with non therapeutic coping strategies. Denies any substance use. Increase in anxiety PFSH Medical History Anxiety and depression COPD (chronic obstructive pulmonary disease) Hesitancy of micturition Hypercholesterolemia Hypertension Low back pain Opioid abuse Opioid use disorder Vitamin D deficiency Surgical History History of inguinal hernia repair Family History (Updated 01/27/23 @ 13:46 by Kathrine Alegria [facility]) Father CHF (congestive heart failure) Hypertension CVD (cardiovascular disease) Mother Dementia Depression with anxiety Maternal Grandmother Diabetes Maternal Grandfather Cancer Brother In good health Son In good health Social History (Updated 01/27/23 @ 14:19 by Mc Ruiz MD) Housing: Apartment Alcohol intake: current Alcohol intake frequency: holidays/special occasions only Patient Tobacco Use Status: Never used Tobacco e-Cigarette/Vaping Use: Never Used Second Hand Smoke Exposure: No service: No Current occupational status: employed Cognitive needs: No Hearing needs: No Vision needs: Yes Review of Systems Const Reports as per HPI and Reports no additional complaints Physical Exam Const General: cooperative and comfortable Nutritional Appearance: well nourished Orientation/consciousness: patient oriented x3 Limitations: no limitations Neuro General: patient oriented x3 Psych Appearance: grossly normal Mental Status: mental status grossly normal Speech and movement: Normal speech and movement present Affect: normal affect Attitude: cooperative Thought process: Normal thought process present Thought content: Normal thought content present Insight: Good insight present (Psych) Judgement: Good judgement present (Psych) Assessment & Plan Assessment & Plan (1) Opioid use disorder, moderate, in sustained remission: Code(s): F11.21 - Opioid dependence, in remission Category: Medical Plan: refilled suboxone relapse prevention discussion follow up 3 months --encouraged to call office if needed prior to next appt Medications: Refilled buprenorphine-naloxone 12-3 mg (Suboxone) 1 film buccal Q24H 30 ea 2RF
== END 2023-09-19 10:55 | disposition home or self-care (01) ==
PROVIDERS: PCP Internal Medicine; Visit Provider Nurse Practitioner Psychiatric/Mental Health
DX: F11.21 Opioid dependence, in remission (principal)
CPT/HCPCS: 99214

== ENCOUNTER → 2023-09-19 09:58 | Outpatient (BNVA) | payer OTHER, SELFPAY | PROVIDERS: PCP Internal Medicine; Visit Provider Nurse Practitioner Psychiatric/Mental Health ==

== ENCOUNTER 2023-09-26 09:36 | Outpatient (AMB) | payer BC, SELFPAY ==
--- NOTE | 2023-09-26 09:36 | A.OFFPC_ITS ---
Intake Visit Reasons: Poison Jes Allergies No Known Allergies Allergy (Mild, Verified 09/26/23 09:37) NONE Tobacco use date assessed: 09/26/23 Dental Screening Dental Screen Date: 09/26/23 Did you have a dental visit in the last 12 months?: Yes Did you have a dental problem in the last 6 months where you did not have access to dental care?: No Was dental information given to patient?: Patient has dentist HPI Poison Jes HPI Details 58-year-old male with a history of hyper tension COPD anemia of chronic disease with hypercholesterolemia and history of opiate use disorder. Patient comes in for an acute problem. Through Telehealth noted also colonoscopy done February 2019 with tubular adenoma. Patient continues to follow-up with comprehensive care for the opiate use disorder presently on Suboxone. 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 rash on the arm and legs- 2 days ago. Prompting for consultation [facility] Medical History Anxiety and depression COPD (chronic obstructive pulmonary disease) Hesitancy of micturition Hypercholesterolemia Hypertension Low back pain Opioid abuse Opioid use disorder Vitamin D deficiency Surgical History History of inguinal hernia repair Family History (Updated 01/27/23 @ 13:46 by Kathrine Alegria SEARCH MARKETING SPECIALIST) Father CHF (congestive heart failure) Hypertension CVD (cardiovascular disease) Mother Dementia Depression with anxiety Maternal Grandmother Diabetes Maternal Grandfather Cancer Brother In good health Son In good health Social History (Updated 01/27/23 @ 14:19 by Mc Ruiz MD) Housing: Apartment Alcohol intake: current Alcohol intake frequency: holidays/special occasions only Patient Tobacco Use Status: Never used Tobacco e-Cigarette/Vaping Use: Never Used Second Hand Smoke Exposure: No service: No Current occupational status: employed Cognitive needs: No Hearing needs: No Vision needs: Yes Questionnaire PHQ-9 Over the last 2 weeks, how often have you been bothered by any of the following problems? 1. Little interest or pleasure in doing things: several days 2. Feeling down, depressed, or hopeless: several days 3. Trouble falling or staying asleep, or sleeping too much: not at all 4. Feeling tired or having little energy: not at all 5. Poor appetite or overeating: not at all 6. Feeling bad about yourself - or that you are a failure or have let yourself or your family down: not at all 7. Trouble concentrating on things, such as reading the newspaper or watching television: not at all 8. Moving or speaking so slowly that other people could have noticed. Or the opposite - being so fidgety or restless that you have been moving around a lot more than usual: not at all 9. Thoughts that you would be better off or of hurting yourself in some way: not at all Total score: 2 Depression Screening Interpretation: Negative Depression Screening Done: Yes 72424 - PHQ-9 Billing: Yes Source: Developed by Drs. Brooks Peña, Bella Sanchez, Miguel Moreno and colleagues, with an educational janki from [employer]. Thrive Questionnaire Date Thrive assessed: 09/26/23 I am a: Patient What is your living situation today?: I have a steady place to live Within the past 12 months, did the food you bought not last and you didn't have the money to get more?: Never true Within the past 12 months, did you worry whether your food would run out before you got money to buy more?: Never true Do you have trouble paying for medicines?: No Do you have trouble getting transportation to medical appointments?: No Do you have trouble paying your heating and electricity bill?: No Do you have trouble taking care of your child, family member or friend?: No Do you have trouble with day-to-day activities such as bathing, preparing meals, shopping, managing finances, etc.?: No Are you currently unemployed and looking for a job?: No Are you interested in more education?: No Currently or been in a relationship where the following occur: No concerns reported THRIVE Score: 0 AUDIT C Alcohol Use Questionnaire (AUDIT-C) 1. How often do you have a drink containing alcohol?: 4 or more times a week 2. How many drinks containing alcohol do you have on a typical day when you are drinking?: 1 or 2 3. How often do you have six or more drinks on one occasion?: Never Total Score: 4 Score Reviewed/Action Taken: Yes SAMIRA-7 AMB Questionnaire SAMIRA-7 Date SAMIRA - 7 assessed: 09/26/23 Feeling nervous, anxious, or on edge: 0 = Not at all Not being able to stop or control worryin = Not at all Worrying too much about different things: 0 = Not at all Trouble relaxin = Not at all Being so restless that it is hard to sit still: 0 = Not at all Becoming easily annoyed or irritable: 0 = Not at all Feeling afraid as if something awful might happen: 0 = Not at all Total SAMIRA-7 score (0-4 normal; 5-9 mild; 10-14 moderate; 15-21 severe): 0 Source: Developed by Drs. Brooks Peña, Bella Sanchez, Miguel Moreno and colleagues, with an educational janki from [employer]. Physical exam (Primary Care) Tobacco/Smoking Status: Tobacco use Status Tobacco use date assessed 09/26/23 09/26/23 09:38 Patient Tobacco Use Status Never used Tobacco 09/26/23 09:38 e-Cigarette/Vaping Use Never Used 09/26/23 09:38 PHQ-9: PHQ-9 Score PHQ-9: Total score 2 09/26/23 09:38 Depression Screening Interpretation: Negative Thrive Assessment: Date of Thrive Assessment Date Thrive assessed 09/26/23 09/26/23 09:38 Currently or been in a relationship where the following occur: No concerns reported Const Other: Video showing an erythematous patch on the right arm. Telehealth Telehealth Location of provider rendering services: practice address Location of patient: address on file Patient Identification confirmed using: Name, : Yes Telehealth method: video (Android) Patient verbally consented to treatment: Yes Patient verbally consented to billing insurance company: Yes Patient informed of any privacy concerns related to visit: Yes Assessment and Plan Assessment & Plan (1) Contact dermatitis due to poison jes: Comment: leg leg and carrasco Code(s): L23.7 - Allergic contact dermatitis due to plants, except food Plan: Steroid sent in discussed about taking allergy medication like Benadryl but side effect of drowsiness. Janeth and Claritin are non sedating. Advised to take steroids with food. (2) Opioid use disorder, moderate, in sustained remission: Code(s): F11.21 - Opioid dependence, in remission Plan: Patient continues to follow-up with comprehensive care on Suboxone (3) Anemia: Code(s): D64.9 - Anemia, unspecified Plan: Chronic and advised to get retesting of blood work (4) Hypertension: Code(s): I10 - Essential (primary) hypertension Qualifiers: Hypertension type: essential hypertension Qualified Code(s): I10 - Essential (primary) hypertension Plan: Noted blood pressure to be elevated, advised to monitor blood pressure and record (5) Colon cancer screening: Comment: Tubular adenoma 02/2019 Dr. Nobles Code(s): Z12.11 - Encounter for screening for malignant neoplasm of colon Plan: Reminded about colonoscopy for this year Orders: Orders IRON PROFILE Today D64.9 - Anemia, unspecified Reticulocyte Count Today D64.9 - Anemia, unspecified Ferritin Today D64.9 - Anemia, unspecified Medications: Refilled prednisone 4 tablets x 2 days, then 3 tablets x 2 days, then 2 tablets x 2 days, then 1 tablet x 2 days 8 days 20 tabs 0RF J45.901 - Unspecified asthma with (acute) exacerbation, M25.50 - Pain in unspecified joint Coding Level of Care Code Tele Est Pt Level 4 (81229) Diagnoses Contact dermatitis due to poison jes L23.7 Opioid use disorder, moderate, in sustained remission F11.21 Anemia D64.9 Essential hypertension I10 Hypertension type: essential hypertension Colon cancer screening Z12.11
== END 2023-09-26 10:19 | disposition home or self-care (01) ==
LOC: HO.HMGH 09:36
PROVIDERS: PCP Internal Medicine; Visit Provider Internal Medicine
DX: L23.7 Allergic contact dermatitis due to plants, except food (principal); F11.21 Opioid dependence, in remission; D64.9 Anemia, unspecified; I10 Essential (primary) hypertension; Z12.11 Encounter for screening for malignant neoplasm of colon
CPT/HCPCS: 99214

== ENCOUNTER 2023-12-15 09:33 | Outpatient (AMB) | payer BC, SELFPAY ==
--- NOTE | 2023-12-15 09:49 | A.OFFVISCC_ITS ---
Intake Visit Reasons: MAT Allergies No Known Allergies Allergy (Mild, Verified 09/26/23 09:37) NONE HPI HPI MAT: Details: Patient presents for follow up currently prescribed suboxone 12mg daily still working PT with nursing home pharmacy switched to [facility] Medical History Anxiety and depression COPD (chronic obstructive pulmonary disease) Hesitancy of micturition Hypercholesterolemia Hypertension Low back pain Opioid abuse Opioid use disorder Vitamin D deficiency Surgical History History of inguinal hernia repair Family History (Updated 01/27/23 @ 13:46 by Kathrine Alegria CMA) Father CHF (congestive heart failure) Hypertension CVD (cardiovascular disease) Mother Dementia Depression with anxiety Maternal Grandmother Diabetes Maternal Grandfather Cancer Brother In good health Son In good health Social History (Updated 01/27/23 @ 14:19 by Mc Ruiz MD) Housing: Apartment Alcohol intake: current Alcohol intake frequency: holidays/special occasions only Patient Tobacco Use Status: Never used Tobacco e-Cigarette/Vaping Use: Never Used Second Hand Smoke Exposure: No service: No Current occupational status: employed Cognitive needs: No Hearing needs: No Vision needs: Yes Review of Systems Const Reports as per HPI and Reports no additional complaints Physical Exam Const General: cooperative and comfortable Nutritional Appearance: well nourished Orientation/consciousness: patient oriented x3 Limitations: no limitations Neuro General: patient oriented x3 Psych Appearance: grossly normal Mental Status: mental status grossly normal Speech and movement: Normal speech and movement present Affect: normal affect Attitude: cooperative Thought process: Normal thought process present Thought content: Normal thought content present Insight: Good insight present (Psych) Judgement: Good judgement present (Psych) Assessment & Plan Assessment & Plan (1) Opioid use disorder, moderate, in sustained remission: Code(s): F11.21 - Opioid dependence, in remission Category: Medical Plan: * continue suboxone at current dose * relapse prevention discussion * follow up 3 months --encouraged to call office if needed prior to next appt
== END 2023-12-15 10:17 | disposition home or self-care (01) ==
PROVIDERS: PCP Internal Medicine; Visit Provider Nurse Practitioner Psychiatric/Mental Health
DX: F11.21 Opioid dependence, in remission (principal)
CPT/HCPCS: 99213

== ENCOUNTER → 2023-12-15 09:33 | Outpatient (BNVA) | payer BC, SELFPAY | PROVIDERS: PCP Internal Medicine; Visit Provider Nurse Practitioner Psychiatric/Mental Health ==

== ENCOUNTER 2024-01-19 13:04 | Outpatient (AMB) | payer BC, SELFPAY ==
[2024-01-19 13:05] VITALS: BP 140/82; PULSE 68; O2SAT 96; BMI 26.0
--- NOTE | 2024-01-19 13:05 | MHC.PC.OV ---
Vital Signs 01/19/24 13:05 Height 5 ft 9 in Weight 176 lb BMI 26.0 BP 140/82 H Blood Pressure Location Lt brachial Position Sitting Pulse 68 Pulse Source Pulse Oximeter Pulse Oximetry (%) 96 Oxygen Delivery Method Room Air Intake Visit Reasons: Derm Referral Genetic Counsellor Required: No Allergies No Known Allergies Allergy (Mild, Verified 01/19/24 13:05) NONE Tobacco use date assessed: 09/26/23 Dental Screening Dental Screen Date: 09/26/23 HPI Derm Referral HPI Details 58-year-old male with a history of opiate use disorder hypertension coming in for an acute problem. Patient was asking for referral for Dermatology but since patient has not been seen comes in.Akiko was seen by dermatology November 2023 - biopsy done on the nasal area was told basal cell but has multiple rash on the face and was rx fluorouracil patient coming in with a whole face erythematous rash from the flourouracil. With the basal cell carcinoma - need to have facila surgery - scheduled April 03, 2024 and need surgery [facility] Medical History Anxiety and depression COPD (chronic obstructive pulmonary disease) Hesitancy of micturition Hypercholesterolemia Hypertension Low back pain Opioid abuse Opioid use disorder Vitamin D deficiency Surgical History History of inguinal hernia repair Family History (Updated 01/27/23 @ 13:46 by Kathrine Alegria CMA) Father CHF (congestive heart failure) Hypertension CVD (cardiovascular disease) Mother Dementia Depression with anxiety Maternal Grandmother Diabetes Maternal Grandfather Cancer Brother In good health Son In good health Social History (Updated 01/27/23 @ 14:19 by Mc Ruiz MD) Housing: Apartment Alcohol intake: current Alcohol intake frequency: holidays/special occasions only Patient Tobacco Use Status: Never used Tobacco e-Cigarette/Vaping Use: Never Used Second Hand Smoke Exposure: No service: No Current occupational status: employed Cognitive needs: No Hearing needs: No Vision needs: Yes Questionnaire Thrive Questionnaire Date Thrive assessed: 09/26/23 AUDIT C Alcohol Use Questionnaire (AUDIT-C) 1. How often do you have a drink containing alcohol?: 4 or more times a week 2. How many drinks containing alcohol do you have on a typical day when you are drinking?: 1 or 2 3. How often do you have six or more drinks on one occasion?: Never Total Score: 4 Score Reviewed/Action Taken: Yes SAMIRA-7 AMB Questionnaire SAMIRA-7 Date SAMIRA - 7 assessed: 09/26/23 Source: Developed by Drs. Brooks Peña, Bella Sanchez, Miguel Moreno and colleagues, with an educational janki from [employer]. Physical exam (Primary Care) Vital Signs: Last Vital Signs Pulse 68 01/19/24 13:05 BP 140/82 H 01/19/24 13:05 Pulse Ox 96 01/19/24 13:05 Oxygen Delivery Method Room Air 01/19/24 13:05 BMI result Body Mass Index 26.0 Tobacco/Smoking Status: Tobacco use Status Tobacco use date assessed 09/26/23 01/19/24 13:06 Patient Tobacco Use Status Never used Tobacco 01/19/24 13:06 e-Cigarette/Vaping Use Never Used 01/19/24 13:06 Thrive Assessment: Date of Thrive Assessment Date Thrive assessed 09/26/23 01/19/24 13:06 [facility] Head images: 1. erythematous lesions on the face scaly sparing eye and temporal area 2. 3. Coding Level of Care Code Est Pt Level 3 (71001) Diagnoses Basal cell adenocarcinoma C44.91 Assessment & Plan Assessment & Plan (1) Basal cell adenocarcinoma: Comment: nasal area Code(s): C44.91 - Basal cell carcinoma of skin, unspecified Category: Medical Plan: Referral to dermatology doneDr. Misha GARCIA#[id number]. to [phone]. Will await for the notes. Orders: Referrals Dermatology Referral C44.91 - Basal cell carcinoma of skin, unspecified
== END 2024-01-19 13:32 | disposition home or self-care (01) ==
PROVIDERS: PCP Internal Medicine; Visit Provider Internal Medicine
DX: C44.91 Basal cell carcinoma of skin, unspecified (principal)

== ENCOUNTER → 2024-01-19 13:04 | Outpatient (BNVA) | payer BC, SELFPAY | PROVIDERS: PCP Internal Medicine; Visit Provider Internal Medicine ==

== ENCOUNTER 2024-03-07 10:26 | Outpatient (AMB) | payer BC, SELFPAY ==
--- NOTE | 2024-03-07 10:35 | A.OFFVISCC_ITS ---
Intake Visit Reasons: MAT Allergies No Known Allergies Allergy (Mild, Verified 01/19/24 13:05) NONE HPI HPI MAT: Details: Patient presents for follow up Currently prescribed Suboxone 12mg QD (cutting film in half and taking BID) Doing well with recovery -- enjoys spending time with family and reflecting on improvements with relationships and communication Recently completed treatment for basal cell carcinoma follow up in March for removal of area on his forehead Review of Systems Const Reports as per HPI and Reports no additional complaints Physical Exam Const General: cooperative, healthy appearing and well groomed Nutritional Appearance: average body habitus Assessment & Plan Assessment & Plan (1) Opioid use disorder, moderate, in sustained remission: Code(s): F11.21 - Opioid dependence, in remission Category: Medical Plan: * continue suboxone at current dose * follow up 3 months Medications: Refilled buprenorphine-naloxone 12-3 mg (Suboxone) 1 film buccal Q24H 30 ea 2RF PFSH Medical History Anxiety and depression COPD (chronic obstructive pulmonary disease) Hesitancy of micturition Hypercholesterolemia Hypertension Low back pain Opioid abuse Opioid use disorder Vitamin D deficiency Surgical History History of inguinal hernia repair Family History (Updated 01/27/23 @ 13:46 by Kathrine Alegria CMA) Father CHF (congestive heart failure) Hypertension CVD (cardiovascular disease) Mother Dementia Depression with anxiety Maternal Grandmother Diabetes Maternal Grandfather Cancer Brother In good health Son In good health Social History (Updated 01/27/23 @ 14:19 by Mc Ruiz MD) Housing: Apartment Alcohol intake: current Alcohol intake frequency: holidays/special occasions only Patient Tobacco Use Status: Never used Tobacco e-Cigarette/Vaping Use: Never Used Second Hand Smoke Exposure: No service: No Current occupational status: employed Cognitive needs: No Hearing needs: No Vision needs: Yes
--- OUTSIDE RECORDS SUMMARY | 2024-03-08 00:29 | XMS_ITS | Patient Health Record ---
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 Name Role Phone Mc Ruiz MD Primary Care Provider [facility] [phone] REASON FOR REFERRAL No Information MEDICATIONS Medication SIG (Take, Route, Frequency, Duration) Notes Start Date End Date Status Irbesartan 150 MG TAKE 1 TABLET EVERY DAY Orally Once a day Active Simvastatin 5 MG TAKE 1 TABLET BY ANDREINA TH EVERY DAY IN THE EVENING Orally Once a day Active Spiriva Respimat 2.5 MCG/ACT INHALE 2 PUFFS BY MOUTH EVERY DAY Inhalation Once a day Active IMMUNIZATIONS Vaccine Route Administration Date Status Comme nts Influenza Unknown 11/28/2018 Refused SOCIAL HISTORY Tobacco Use: Social History Observation Description Date Details (start date - stop date) Never Smoker NA - NA Sex Assigned At : Social History Observation Description Sex Assigned At Unknown Tobacco Use/Smoking Question Answer Notes Patient is a nonsmoker Alcohol Screen Question Answer Notes Did you have a drink contain ing alcohol in the past year? Yes How often did you have a dri nk containing alcohol in the past year? 2 to 3 times a week (3 points) How many drinks did you have on a typical day when you were drinking in the past year? 1 or 2 drinks (0 point) How often did you have 6 or more drinks on one occasion in the past year? Never (0 point) Points 3 Interpretation Negative PROBLEMS Problem Type ICD Code Onset Dates Problem Status W/U Status Risk SNOMED Code Notes Problem Encounter for screening for malignant neoplasm of colon (Z12.11) Active confirmed [id number] Problem Preprocedural examination (Z01.818) Active confirmed [id number] PLAN OF TREATMENT Future Test Test Name Order Date COLONOSCOPY 11/28/2018 Insurance Providers Payer Name Payer Address Payer Phone Subscriber Number Group Number Insured Name Patient Relationship to Insured Coverage Start Date Coverage End Date [facility] [address] [facility] [place] [phone] [id number] FABRICIO IRENE Self - patient is the insured MEDICAL (GENERAL) HISTORY Medical History History ICD Code Hypertension Denies IN,DM,CVA,renal disease COPD Hyperlipidemia Surgical History Surgery Date(Month/Year) Hernia repair--left inguinal 2013 Eye surgery as a child
== END 2024-03-07 11:05 | disposition home or self-care (01) ==
PROVIDERS: PCP Internal Medicine; Visit Provider Nurse Practitioner Psychiatric/Mental Health
DX: F11.21 Opioid dependence, in remission (principal)
CPT/HCPCS: 99213

== ENCOUNTER → 2024-03-07 10:26 | Outpatient (BNVA) | payer BC, SELFPAY | PROVIDERS: PCP Internal Medicine; Visit Provider Nurse Practitioner Psychiatric/Mental Health | DX: F11.21 Opioid dependence, in remission (principal) ==

== ENCOUNTER → 2024-04-26 09:32 | Outpatient (BNVA) | payer BC, SELFPAY | PROVIDERS: PCP Internal Medicine ==

== ENCOUNTER 2024-05-16 11:16 | Outpatient (AMB) | payer BC, SELFPAY ==
[2024-05-16 11:20] VITALS: BP 134/70; PULSE 54; O2SAT 92; BMI 25.4
--- NOTE | 2024-05-16 11:20 | MHC.PC.OV ---
Vital Signs 05/16/24 11:20 Height 5 ft 9 in Weight 172 lb BMI 25.4 BP 134/70 Blood Pressure Location Lt brachial Position Sitting Pulse 54 Pulse Source Pulse Oximeter Pulse Oximetry (%) 92 Oxygen Delivery Method Room Air Intake Visit Reasons: discuss erectile dysfunction Allergies No Known Allergies Allergy (Mild, Verified 05/16/24 11:21) NONE Tobacco use date assessed: 05/16/24 Dental Screening Dental Screen Date: 05/16/24 Did you have a dental visit in the last 12 months?: Yes Did you have a dental problem in the last 6 months where you did not have access to dental care?: No Was dental information given to patient?: Patient has dentist HPI discuss erectile dysfunction HPI Details The patient is a 58-year-old male presenting with a follow-up for management of essential hypertension, chronic obstructive pulmonary disease, hypercholesterolemia, and opioid use disorder. He has a significant past medical history that includes hypertension, managed with lisinopril and hydrochlorothiazide, with blood pressure reported to have plateaued and overdue blood work. COPD management involves tiotropium inhaler, with a recent discussion regarding the need for an albuterol rescue inhaler for acute symptoms. His hypercholesterolemia is being managed with dietary and pharmacologic therapies, with pending blood work for monitoring. The patient follows comprehensive care for opioid use disorder and is on suboxone treatment. He also has a history of basal cell carcinoma, treated successfully with excision in April, with no complications noted post-procedure. A history of tubular adenoma was managed with a colonoscopy in 2018, and he is due for a follow-up colonoscopy. Additionally, the patient reports new-onset erectile dysfunction, attributing potential causes to prior opioid use, expressing interest in exploring treatment options including sildenafil. Previous testosterone levels are to be checked with upcoming laboratory work. [facility] Medical History Anxiety and depression COPD (chronic obstructive pulmonary disease) Hesitancy of micturition Hypercholesterolemia Hypertension Low back pain Opioid abuse Opioid use disorder Vitamin D deficiency Surgical History History of inguinal hernia repair Family History (Updated 01/27/23 @ 13:46 by Kathrine Alegria CMA) Father CHF (congestive heart failure) Hypertension CVD (cardiovascular disease) Mother Dementia Depression with anxiety Maternal Grandmother Diabetes Maternal Grandfather Cancer Brother In good health Son In good health Social History (Updated 01/27/23 @ 14:19 by Mc Ruiz MD) Housing: Apartment Alcohol intake: current Alcohol intake frequency: holidays/special occasions only Patient Tobacco Use Status: Never used Tobacco Tobacco use type: Cigarette e-Cigarette/Vaping Use: Never Used Second Hand Smoke Exposure: No service: No Current occupational status: employed Cognitive needs: No Hearing needs: No Vision needs: Yes Questionnaire PHQ-9 Over the last 2 weeks, how often have you been bothered by any of the following problems? 1. Little interest or pleasure in doing things: several days 2. Feeling down, depressed, or hopeless: several days 3. Trouble falling or staying asleep, or sleeping too much: not at all 4. Feeling tired or having little energy: not at all 5. Poor appetite or overeating: not at all 6. Feeling bad about yourself - or that you are a failure or have let yourself or your family down: not at all 7. Trouble concentrating on things, such as reading the newspaper or watching television: not at all 8. Moving or speaking so slowly that other people could have noticed. Or the opposite - being so fidgety or restless that you have been moving around a lot more than usual: not at all 9. Thoughts that you would be better off or of hurting yourself in some way: not at all Total score: 2 Depression Screening Interpretation: Negative Depression Screening Done: Yes 97471 - PHQ-9 Billing: Yes Source: Developed by Drs. Brooks Peña, Bella Sanchez, Miguel Moreno and colleagues, with an educational janki from [facility]. Thrive Questionnaire Date Thrive assessed: 05/16/24 I am a: Patient What is your living situation today?: I have a steady place to live Within the past 12 months, did the food you bought not last and you didn't have the money to get more?: Never true Within the past 12 months, did you worry whether your food would run out before you got money to buy more?: Never true Do you have trouble paying for medicines?: No Do you have trouble getting transportation to medical appointments?: No Do you have trouble paying your heating and electricity bill?: No Do you have trouble taking care of your child, family member or friend?: No Do you have trouble with day-to-day activities such as bathing, preparing meals, shopping, managing finances, etc.?: No Are you currently unemployed and looking for a job?: No Are you interested in more education?: No Currently or been in a relationship where the following occur: No concerns reported THRIVE Score: 0 AUDIT C Alcohol Use Questionnaire (AUDIT-C) 1. How often do you have a drink containing alcohol?: 4 or more times a week 2. How many drinks containing alcohol do you have on a typical day when you are drinking?: 1 or 2 3. How often do you have six or more drinks on one occasion?: Never Total Score: 4 Score Reviewed/Action Taken: Yes SAMIRA-7 AMB Questionnaire SAMIRA-7 Date SAMIRA - 7 assessed: 05/16/24 Feeling nervous, anxious, or on edge: 0 = Not at all Not being able to stop or control worryin = Not at all Worrying too much about different things: 0 = Not at all Trouble relaxin = Not at all Being so restless that it is hard to sit still: 0 = Not at all Becoming easily annoyed or irritable: 0 = Not at all Feeling afraid as if something awful might happen: 0 = Not at all Total SAMIRA-7 score (0-4 normal; 5-9 mild; 10-14 moderate; 15-21 severe): 0 Source: Developed by Drs. Brooks Peña, Bella Sanchez, Miguel Moreno and colleagues, with an educational janki from [facility]. Physical exam (Primary Care) Vital Signs: Last Vital Signs Pulse 54 05/16/24 11:20 BP 134/70 05/16/24 11:20 Pulse Ox 92 05/16/24 11:20 Oxygen Delivery Method Room Air 05/16/24 11:20 BMI result Body Mass Index 25.4 Tobacco/Smoking Status: Tobacco use Status Tobacco use date assessed 05/16/24 05/16/24 11:24 Patient Tobacco Use Status Never used Tobacco 05/16/24 11:24 Tobacco use type Cigarette 05/16/24 11:24 e-Cigarette/Vaping Use Never Used 05/16/24 11:24 PHQ-9: PHQ-9 Score PHQ-9: Total score 2 05/16/24 11:59 Depression Screening Interpretation: Negative Thrive Assessment: Date of Thrive Assessment Date Thrive assessed 05/16/24 05/16/24 11:24 Currently or been in a relationship where the following occur: No concerns reported Const General: alert; No acute distress Eyes Conjunctivae: conjunctivae normal Resp Auscultation: clear to auscultation bilaterally Cardio Rate: regular rate Rhythm: regular rhythm GI Inspection: Yes normal to inspection Extrem General: Yes normal to inspection and No edema Coding Level of Care Code Est Pt Level 4 (40242) Diagnoses Opioid use disorder, moderate, in sustained remission F11.21 Colon cancer screening Z12.11 Panlobular emphysema J43.1 COPD type: emphysema Emphysema type: panlobular Hypercholesterolemia E78.00 Essential hypertension I10 Hypertension type: essential hypertension Erectile dysfunction N52.9 Additional Codes PHQ-9 - 63836 - PHQ-9 Billing: Yes ([id number]) Assessment & Plan Assessment & Plan (1) Opioid use disorder, moderate, in sustained remission: Code(s): F11.21 - Opioid dependence, in remission Category: Medical Plan: Patient goes to comprehensive care and get Suboxone (2) Colon cancer screening: Comment: Tubular adenoma 02/2019 Dr. Nobles Code(s): Z12.11 - Encounter for screening for malignant neoplasm of colon Category: Medical Plan: Patient is reminded about colonoscopy seeing Dr. Nobles (3) COPD (chronic obstructive pulmonary disease): Code(s): J44.9 - Chronic obstructive pulmonary disease, unspecified Category: Medical Qualifiers: COPD type: emphysema Emphysema type: panlobular Qualified Code(s): J43.1 - Panlobular emphysema Plan: On tiotropium inhaler discussed about rescue inhalers also. (4) Hypercholesterolemia: Code(s): E78.00 - Pure hypercholesterolemia, unspecified Category: Medical Plan: Avoid fried foods, chicken skin, eggs, butter margarine, pastries and meat. Be it pork or beef they have a lot of cholesterol patient is advised to get blood work done (5) Hypertension: Code(s): I10 - Essential (primary) hypertension Category: Medical Qualifiers: Hypertension type: essential hypertension Qualified Code(s): I10 - Essential (primary) hypertension Plan: Continue with blood pressure medication. Decrease salt intake and exercise on lisinopril hydrochlorothiazide patient needs blood work (6) Erectile dysfunction: Code(s): N52.9 - Male erectile dysfunction, unspecified Category: Medical Plan - Essential Hypertension: Continue lisinopril and hydrochlorothiazide. Repeat fasting blood work is necessary for further evaluation and monitoring. - Chronic Obstructive Pulmonary Disease COPD): Continue tiotropium inhaler. Albuterol inhaler prescribed for acute shortness of breath. - Hypercholesterolemia: Blood work is advised to monitor cholesterol levels. - Opioid Use Disorder: Continue current regimen of suboxone through comprehensive care. - Basal Cell Carcinoma: Continue silicone application to site; consider dermatology follow-up as needed. - Tubular Adenoma: Referral for colonoscopy should be pursued. - Erectile Dysfunction: Sildenafil prescribed, evaluate testosterone levels with upcoming testing to rule out hormonal causes. Orders: Orders Testosterone, Free/Total Today N52.9 - Male erectile dysfunction, unspecified Referrals Gastroenterology Referral Z12.11 - Encounter for screening for malignant neoplasm of colon Medications: New albuterol sulfate 90 mcg/actuation (Proair Digihaler) 2 inhalations inhalation Q4-6H PRN 1 ea 0RF shortness of breath or wheezing J43.1 - Panlobular emphysema sildenafil administer 30 minutes to 4 hours before activity 50 mg PO DAILY PRN 14 tabs 8RF sexual activity N52.9 - Male erectile dysfunction, unspecified
--- OUTSIDE RECORDS SUMMARY | 2024-05-16 11:58 | XMS_ITS | Patient Health Record ---
Author Organization [facility] Address [address] [place] [address] Care Team Providers Care Obstetrics Nurse Practitioner Name Role Phone Mc Ruiz MD Primary Care Provider [place] [phone] REASON FOR REFERRAL No Information MEDICATIONS Medication [...] malignant neoplasm of colon (Z12.11) Active confirmed [id number] Problem Preprocedural examination (Z01.818) Active confirmed [id number] PLAN OF TREATMENT Future Test Test Name Order Date COLONOSCOPY 11/28/2018 Insurance Providers Payer Name Payer Address Payer Phone Subscriber Number Group Number Insured Name Patient Relationship to Insured Coverage Start Date Coverage End Date [facility] [address] [facility] [place] [phone] [id number] FABRICIO IRENE Self - patient is the insured MEDICAL (GENERAL) HISTORY Medical History History ICD Code Hypertension Denies PA,DM,CVA,renal disease COPD Hyperlipidemia Surgical History Surgery Date(Month/Year) Hernia repair--left inguinal 2013 Eye surgery as a child
== END 2024-05-16 12:08 | disposition home or self-care (01) ==
PROVIDERS: PCP Internal Medicine; Visit Provider Internal Medicine
DX: F11.21 Opioid dependence, in remission (principal); Z12.11 Encounter for screening for malignant neoplasm of colon; J43.1 Panlobular emphysema; E78.00 Pure hypercholesterolemia, unspecified; I10 Essential (primary) hypertension; N52.9 Male erectile dysfunction, unspecified

== ENCOUNTER → 2024-05-16 11:16 | Outpatient (BNVA) | payer BC, SELFPAY | PROVIDERS: PCP Internal Medicine; Visit Provider Internal Medicine | DX: F11.21 Opioid dependence, in remission (principal); J43.1 Panlobular emphysema; E78.00 Pure hypercholesterolemia, unspecified; I10 Essential (primary) hypertension; N52.9 Male erectile dysfunction, unspecified; Z79.899 Other long term (current) drug therapy; Z85.9 Personal history of malignant neoplasm, unspecified; Z86.0101 Personal history of adenomatous and serrated colon polyps | CPT/HCPCS: 96127 ==

== ENCOUNTER 2024-06-21 10:33 | Outpatient (REF) | payer BC, SELFPAY ==
--- NOTE | ~2024-06-21 | XR_ITS ---
EXAMINATION: XR CHEST CLINICAL INFORMATION: J44.1 - Chronic obstructive pulmonary disease with (acute) exacerbation COMPARISON: None available. TECHNIQUE: 2 views of the chest were obtained. FINDINGS: The cardiac, hilar, and mediastinal contours are normal. The lungs are clear bilaterally. There is no pneumothorax or pleural effusion. There is no focal osseous or soft tissue abnormality. There are mild spinal degenerative changes. XR/XR chest 2V IMPRESSION: No active pulmonary disease. Electronically signed by: Issac Miller MD 06/21/2024 12:16 PM EDT
== END 2024-06-21 10:34 | disposition home or self-care (01) ==
LOC: HO.LAB 10:33
PROVIDERS: PCP Internal Medicine; Visit Provider Internal Medicine
DX: J44.1 Chronic obstructive pulmonary disease with (acute) exacerbation (principal); J98.8 Other specified respiratory disorders
CPT/HCPCS: 71046; 96127

== ENCOUNTER 2024-06-21 10:33 | Outpatient (AMB) | payer BC, SELFPAY ==
[2024-06-21 10:39] VITALS: BP 130/96; PULSE 64; O2SAT 97; BMI 24.3
--- NOTE | 2024-06-21 10:39 | A.OFFPC_ITS ---
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 Accompanied by: Self / Same As Patient Allergies No Known Allergies Allergy (Mild, Verified 06/21/24 10:49) NONE Medication List - Last Reconciled 06/21/24 by Artur Cornell MD albuterol sulfate 90 mcg/actuation (Ventolin HFA) 2 puffs inhalation Q6H PRN buprenorphine-naloxone 12-3 mg (Suboxone) 1 film buccal Q24H lisinopril-hydrochlorothiazide 10-12.5 mg 1 tab PO DAILY sildenafil 50 mg PO DAILY PRN tiotropium bromide 2.5 mcg/actuation (Spiriva Respimat) 2 puffs PO DAILY Tobacco use date assessed: 06/21/24 Dental Screening Dental Screen Date: 06/21/24 Did you have a dental visit in the last 12 months?: No Did you have a dental problem in the last 6 months where you did not have access to dental care?: No Was dental information given to patient?: Patient has dentist HPI COPD HPI Details Patient comes in today complaining of increased chest congestion and coughing, which he states have been going on for at least a week and a half now States that he coughs up thick whitish to yellowish phlegm at times and that his cough is worse at night He denies any fever or sore throat; denies any headaches or dizziness Denies any chest pains; states that his chest feels congested and tight at times No nausea/vomiting, no abdominal pain No change in bowel habits noted [facility] Medical History Anxiety and depression COPD (chronic obstructive pulmonary disease) Hesitancy of micturition Hypercholesterolemia Hypertension Low back pain Opioid abuse Opioid use disorder Vitamin D deficiency Surgical History History of inguinal hernia repair Family History Father CHF (congestive heart failure) Hypertension CVD (cardiovascular disease) Mother Dementia Depression with anxiety Maternal Grandmother Diabetes Maternal Grandfather Cancer Brother In good health Son In good health Social History Housing: Apartment Alcohol intake: current Alcohol intake frequency: holidays/special occasions only Patient Tobacco Use Status: Never used Tobacco Tobacco use type: Cigarette e-Cigarette/Vaping Use: Never Used Second Hand Smoke Exposure: No service: No Current occupational status: employed Cognitive needs: No Hearing needs: No Vision needs: Yes Questionnaire PHQ-9 Over the last 2 weeks, how often have you been bothered by any of the following problems? 1. Little interest or pleasure in doing things: several days 2. Feeling down, depressed, or hopeless: several days 3. Trouble falling or staying asleep, or sleeping too much: not at all 4. Feeling tired or having little energy: not at all 5. Poor appetite or overeating: not at all 6. Feeling bad about yourself - or that you are a failure or have let yourself or your family down: not at all 7. Trouble concentrating on things, such as reading the newspaper or watching television: not at all 8. Moving or speaking so slowly that other people could have noticed. Or the opposite - being so fidgety or restless that you have been moving around a lot more than usual: not at all 9. Thoughts that you would be better off or of hurting yourself in some way: not at all Total score: 2 Depression Screening Interpretation: Negative Depression Screening Done: Yes 33066 - PHQ-9 Billing: Yes Source: Developed by Drs. Brooks Peña, Bella Sanchez, Miguel Moreno and colleagues, with an educational janki from [employer]. Thrive Questionnaire Date Thrive assessed: 06/21/24 I am a: Patient What is your living situation today?: I have a steady place to live Within the past 12 months, did the food you bought not last and you didn't have the money to get more?: Never true Within the past 12 months, did you worry whether your food would run out before you got money to buy more?: Never true Do you have trouble paying for medicines?: No Do you have trouble getting transportation to medical appointments?: No Do you have trouble paying your heating and electricity bill?: No Do you have trouble taking care of your child, family member or friend?: No Do you have trouble with day-to-day activities such as bathing, preparing meals, shopping, managing finances, etc.?: No Are you currently unemployed and looking for a job?: No Are you interested in more education?: No Please select the resources that you would like help with: None Currently or been in a relationship where the following occur: No concerns reported THRIVE Score: 0 AUDIT C Alcohol Use Questionnaire (AUDIT-C) 1. How often do you have a drink containing alcohol?: 4 or more times a week 2. How many drinks containing alcohol do you have on a typical day when you are drinking?: 1 or 2 3. How often do you have six or more drinks on one occasion?: Never Total Score: 4 Score Reviewed/Action Taken: Yes SAMIRA-7 AMB Questionnaire SAMIRA-7 Date SAMIRA - 7 assessed: 06/21/24 Feeling nervous, anxious, or on edge: 0 = Not at all Not being able to stop or control worryin = Not at all Worrying too much about different things: 0 = Not at all Trouble relaxin = Not at all Being so restless that it is hard to sit still: 0 = Not at all Becoming easily annoyed or irritable: 0 = Not at all Feeling afraid as if something awful might happen: 0 = Not at all Total SAMIRA-7 score (0-4 normal; 5-9 mild; 10-14 moderate; 15-21 severe): 0 Source: Developed by Drs. Brooks Peña, Bella Sanchez, Miguel Moreno and colleagues, with an educational janki from [employer]. Review of Systems Const Denies chills, Reports fatigue, Denies fever(s) and Denies headache(s) ENT Denies dysphagia, Denies dizziness, Denies otalgia, Denies headache(s), Reports nasal congestion (mild), Denies neck pain, Denies odynophagia and Denies sore throat Card Denies chest pain, Denies palpitations and Reports dyspnea on exertion Resp Reports chest congestion (chest feels tight often lately, especially with increased activity/exertion), Reports cough (worse at night; coughs up thick whitish to yellowish phlegm), Reports dyspnea on exertion and Reports wheezing (on and off lately) GI Denies abdominal pain, Denies constipation, Denies dysphagia, Denies heartburn, Denies diarrhea, Denies nausea, Denies odynophagia and Denies vomiting Denies difficulty urinating, Denies nocturia and Denies urinary frequency Musc Denies back pain and Denies neck pain Skin/Breast Denies rash Neuro Denies dizziness and Denies headache(s) Endo Reports fatigue and Denies palpitations Aller/Immun Reports wheezing (on and off lately) Physical exam (Primary Care) Vital Signs: Last Vital Signs Pulse 64 06/21/24 10:39 BP 130/96 H 06/21/24 10:39 Pulse Ox 97 06/21/24 10:39 Oxygen Delivery Method Room Air 06/21/24 10:39 BMI result Body Mass Index 24.3 Tobacco/Smoking Status: Tobacco use Status Tobacco use date assessed 06/21/24 06/21/24 10:44 Patient Tobacco Use Status Never used Tobacco 06/21/24 10:44 Tobacco use type Cigarette 06/21/24 10:44 e-Cigarette/Vaping Use Never Used 06/21/24 10:44 PHQ-9: PHQ-9 Score PHQ-9: Total score 2 06/21/24 11:02 Depression Screening Interpretation: Negative Thrive Assessment: Date of Thrive Assessment Date Thrive assessed 06/21/24 06/21/24 10:44 Currently or been in a relationship where the following occur: No concerns reported Const General: no acute distress and alert HENMT Ears: TM's normal bilaterally and EAC's normal Throat: Yes posterior oropharynx normal and Yes tonsils normal (no TP congestion noted) Neck Neck: Yes supple and No lymphadenopathy Thyroid: Thyroid normal Resp Auscultation: no crackles, no rales, rhonchi (scattered) throughout, wheezes expiratory wheezes, diminished lung sounds bilateral and bronchial breath sounds bilateral Cardio Rate: regular rate Rhythm: regular rhythm Heart sounds: no murmurs GI Palpation (GI): Soft to palpation and nontender Auscultation: normal bowel sounds General: Yes no CVA tenderness Back/Spine/Pelvis Back: no CVA tenderness Thoracic/Lumbar Spine: No lumbar spinal tenderness Skin Rashes: no rashes Extrem General: Yes no clubbing, cyanosis or edema Coding Level of Care Code Est Pt Level 3 (01615) Diagnoses COPD exacerbation J44.1 Additional Codes PHQ-9 - 85555 - PHQ-9 Billing: Yes ([id number]) Assessment & Plan Assessment & Plan (1) COPD exacerbation: Code(s): J44.1 - Chronic obstructive pulmonary disease with (acute) exacerbation Category: Medical Plan: Will send patient for chest x-rays [facility] for further evaluation Will start patient on Cefuroxime 500 mg BID x 10 days and oral Prednisone taper Patient is instructed to proceed to the ER [facility] if he starts experiencing any worsening shortness of breath over the next several days Plan To return as scheduled in August 2024 for his annual physical examination with his PCP Orders: Orders XR chest 2V 06/21/24 J44.1 - Chronic obstructive pulmonary disease with (acute) exacerbation, J98.8 - Other specified respiratory disorders Medications: New prednisone 4 tablets x 2 days, then 3 tablets x 2 days, then 2 tablets x 2 days, then 1 tablet x 2 days 8 days 20 tabs 0RF J45.901 - Unspecified asthma with (acute) exacerbation, M25.50 - Pain in unspecified joint cefuroxime axetil 500 mg PO BID 10 days 20 tabs 0RF
== END 2024-06-21 11:16 | disposition home or self-care (01) ==
LOC: HO.HMCH 10:34
PROVIDERS: PCP Internal Medicine; Visit Provider Internal Medicine
DX: J44.1 Chronic obstructive pulmonary disease with (acute) exacerbation (principal)

== ENCOUNTER → 2024-06-21 11:05 | Outpatient (BNV) | payer BC, SELFPAY | PROVIDERS: PCP Internal Medicine; Visit Provider Radiology Diagnostic Radiology | DX: J44.1 Chronic obstructive pulmonary disease with (acute) exacerbation (principal) | CPT/HCPCS: 71046 ==

== ENCOUNTER 2024-07-17 15:14 | Outpatient (AMB) | payer BC, SELFPAY ==
[2024-07-17 15:22] VITALS: BP 104/68; PULSE 57; RESP 18; TEMP 36.4; O2SAT 96; BMI 23.5
--- NOTE | 2024-07-17 15:22 | A.OFFPC_ITS ---
Vital Signs 07/17/24 15:22 Height 5 ft 9 in Weight 159 lb BMI 23.5 BP 104/68 Blood Pressure Location Lt brachial Position Sitting Respiration 18 Pulse 57 Pulse Source Pulse Oximeter Temp 97.5 F Temp Source Temporal Artery Scan Pulse Oximetry (%) 96 Oxygen Delivery Method Room Air Intake Visit Reasons: copd condition Manager Primary Required: No Accompanied by: Self / Same As Patient Allergies No Known Allergies Allergy (Mild, Verified 07/17/24 15:25) NONE Tobacco use date assessed: 07/17/24 Dental Screening Dental Screen Date: 07/17/24 Did you have a dental visit in the last 12 months?: Yes Did you have a dental problem in the last 6 months where you did not have access to dental care?: No Was dental information given to patient?: Patient has dentist HPI copd condition HPI Details patient comes in sob wheezing and cough. 59-year-old male with a history of COPD hypertension hypercholesterolemia polysubstance abuse coming in for shortness of breath. Patient has not had a colonoscopy at and states has a schedule. Meanwhile blood work not done yet. Patient comes in for the acute visit. [facility] Medical History Anxiety and depression COPD (chronic obstructive pulmonary disease) Hesitancy of micturition Hypercholesterolemia Hypertension Low back pain Opioid abuse Opioid use disorder Vitamin D deficiency Surgical History History of inguinal hernia repair Family History Father CHF (congestive heart failure) Hypertension CVD (cardiovascular disease) Mother Dementia Depression with anxiety Maternal Grandmother Diabetes Maternal Grandfather Cancer Brother In good health Son In good health Social History Housing: Apartment Alcohol intake: current Alcohol intake frequency: holidays/special occasions only Patient Tobacco Use Status: Never used Tobacco Tobacco use type: Cigarette e-Cigarette/Vaping Use: Never Used Second Hand Smoke Exposure: No service: No Current occupational status: employed Cognitive needs: No Hearing needs: No Vision needs: Yes (Glasses) Questionnaire Thrive Questionnaire Date Thrive assessed: 07/17/24 I am a: Patient What is your living situation today?: I have a steady place to live Within the past 12 months, did the food you bought not last and you didn't have the money to get more?: Never true Within the past 12 months, did you worry whether your food would run out before you got money to buy more?: Never true Do you have trouble paying for medicines?: No Do you have trouble getting transportation to medical appointments?: No Do you have trouble paying your heating and electricity bill?: No Do you have trouble taking care of your child, family member or friend?: No Do you have trouble with day-to-day activities such as bathing, preparing meals, shopping, managing finances, etc.?: No Are you currently unemployed and looking for a job?: No Are you interested in more education?: No Please select the resources that you would like help with: None Currently or been in a relationship where the following occur: No concerns reported THRIVE Score: 0 AUDIT C Alcohol Use Questionnaire (AUDIT-C) 1. How often do you have a drink containing alcohol?: 4 or more times a week 2. How many drinks containing alcohol do you have on a typical day when you are drinking?: 1 or 2 3. How often do you have six or more drinks on one occasion?: Never Total Score: 4 Score Reviewed/Action Taken: Yes SAMIRA-7 AMB Questionnaire SAMIRA-7 Date SAMIRA - 7 assessed: 06/21/24 Source: Developed by Drs. Brooks Peña, Bella Sanchez, Miguel Moreno and colleagues, with an educational janki from [employer]. Physical exam (Primary Care) Vital Signs: Last Vital Signs Temp 97.5 F 07/17/24 15:22 Pulse 57 07/17/24 15:22 Resp 18 07/17/24 15:22 BP 104/68 07/17/24 15:22 Pulse Ox 96 07/17/24 15:22 Oxygen Delivery Method Room Air 07/17/24 15:22 BMI result Body Mass Index 23.5 Tobacco/Smoking Status: Tobacco use Status Tobacco use date assessed 07/17/24 07/17/24 15:31 Patient Tobacco Use Status Never used Tobacco 07/17/24 15:31 Tobacco use type Cigarette 07/17/24 15:31 e-Cigarette/Vaping Use Never Used 07/17/24 15:31 Thrive Assessment: Date of Thrive Assessment Date Thrive assessed 07/17/24 07/17/24 15:31 Currently or been in a relationship where the following occur: No concerns reported Const General: alert; No acute distress Eyes Conjunctivae: conjunctivae normal Resp Other: Decreased breath sounds with wheezing bilaterally Cardio Rate: regular rate Rhythm: regular rhythm GI Inspection: Yes normal to inspection Extrem General: Yes normal to inspection and No edema Coding Level of Care Code Est Pt Level 4 (80477) Diagnoses Colon cancer screening Z12.11 Panlobular emphysema J43.1 COPD type: emphysema Emphysema type: panlobular Essential hypertension I10 Hypertension type: essential hypertension Hypercholesterolemia E78.00 Opioid use disorder, moderate, in sustained remission F11.21 COPD exacerbation J44.1 Assessment & Plan Assessment & Plan (1) Colon cancer screening: Comment: Tubular adenoma 02/2019 Dr. Nobles Code(s): Z12.11 - Encounter for screening for malignant neoplasm of colon Category: Medical Plan: Reminded about colonoscopy. Patient states has a schedule (2) COPD (chronic obstructive pulmonary disease): Code(s): J44.9 - Chronic obstructive pulmonary disease, unspecified Category: Medical Qualifiers: COPD type: emphysema Emphysema type: panlobular Qualified Code(s): J43.1 - Panlobular emphysema Plan: On Spiriva and Ventolin. Patient was prescribed Symbicort as an addition for COPD control (3) Hypertension: Code(s): I10 - Essential (primary) hypertension Category: Medical Qualifiers: Hypertension type: essential hypertension Qualified Code(s): I10 - Essential (primary) hypertension Plan: Continue with blood pressure medication. Decrease salt intake and exercise on lisinopril hydrochlorothiazide blood work pending (4) Hypercholesterolemia: Code(s): E78.00 - Pure hypercholesterolemia, unspecified Category: Medical Plan: Avoid fried foods, chicken skin, eggs, butter margarine, pastries and meat. Be it pork or beef they have a lot of cholesterol patient is advised to get blood work done (5) Opioid use disorder, moderate, in sustained remission: Code(s): F11.21 - Opioid dependence, in remission Category: Medical Plan: Patient is reminded about comprehensive care (6) COPD exacerbation: Code(s): J44.1 - Chronic obstructive pulmonary disease with (acute) exacerbation Category: Medical Plan: Nebulizer treatment given in the office with relief. Patient is given controller inhaler and discussed the use of this controller inhalers. Refill d one discussed that steroids and antibiotic are not really needed at this time will have the patient keep that for the moment Medications: New prednisone 4 tabs QD x 2 days then 3 tabs QD x 2 days then 2 tabs Qd x 2 days then 1 tab QD x 2 days PO daily; 20 tabs 0RF J44.1 - Chronic obstructive pulmonary disease with (acute) exacerbation, J45.909 - Unspecified asthma, uncomplicated azithromycin (Zithromax) For 250 mg dose pack: take 500 mg today (day 1), then 250 mg for 4 days (days 2-5) PO 6 tabs 0RF J44.1 - Chronic obstructive pulmonary disease with (acute) exacerbation budesonide-formoterol 160-4.5 mcg/actuation (Symbicort) 2 puffs inhalation BID 10.2 grams 12RF J43.1 - Panlobular emphysema
--- OUTSIDE RECORDS SUMMARY | 2024-07-17 18:08 | XMS_ITS | Patient Health Record ---
Author Organization [facility] Address [address] [place] [address] Care Team Providers Care Parts Specialist Name Role Phone Po Mc LANGSTON Primary Care Provider Unavailanusha e Brooks Nobles Unavailable [phone] Reason For Referral Referring Provider First Name Mc Referring Provider Last Name Po Referring Provider Speciality Internal M edicine Referred Organization [facility] Referred Provider Brooks Nobles Referred Address [address] [facility],[place],[address], Referred Provider Specialty Gastroentero logy Referral Priority Routine Medications Medication SIG (Take, Route, Frequency, Duration) Notes Start Date End Date Status Irbesartan 150 MG TAKE 1 TABLET EVERY DAY Orally Once a day Active Simvastatin 5 MG TAKE 1 TABLET BY ANDREINA TH EVERY DAY IN THE EVENING Orally Once a day Active Spiriva Respimat 2.5 MCG/ACT INHALE 2 PUFFS BY MOUTH EVERY DAY Inhalation Once a day Active Immunizations Vaccine Route Administration Date Status Comme nts Influenza Unknown 11/28/2018 Refused Social History Tobacco Use: Social History Observation Description Date Details (start date - stop date) Never Smoker NA - NA Tobacco Use/Smoking Question Answer Notes Patient is [...] Never (0 point) Points 3 Interpretation Negative Section Notes: Nonsmoker; 1-2 beers QOD Problems Problem Type SNOMED Code ICD Code Onset Dates Problem Status W/U Status Risk Notes Problem [id number] Encounter for screening for malignant neoplasm of colon (Z12.11) Active confirmed Problem [id number] Preprocedural examination (Z01.818) Active confirmed Plan Of Treatment Future Test Test Name Order Date COLONOSCOPY 11/28/2018 Next Appt Details Provider Name:Brooks Nobles , 09/11/2024 02:20:00 PM, [address] [facility], [address], [place], [address], Insurance Providers Payer Name Payer Address Payer Phone Subscriber Number Group Number Insured Name Patient Relationship to Insured Coverage Start Date Coverage End Date [facility] [employer] PROFESSIONAL CLAIMS [address] [place] [address] [id number] 2 FABRICIO IRENE Self - patient is the insured Medical (General) History Medical History History ICD Code Hypertension Denies CA,DM,CVA,renal disease COPD Hyperlipidemia Surgical History Surgery Date(Month/Year) Hernia repair--left inguinal 2014 Eye surgery as a child
== END 2024-07-17 16:36 | disposition home or self-care (01) ==
LOC: HO.HMCH 15:14
PROVIDERS: PCP Internal Medicine; Visit Provider Internal Medicine
DX: J43.1 Panlobular emphysema (principal); F11.21 Opioid dependence, in remission; J44.1 Chronic obstructive pulmonary disease with (acute) exacerbation; Z12.11 Encounter for screening for malignant neoplasm of colon; I10 Essential (primary) hypertension; E78.00 Pure hypercholesterolemia, unspecified

== ENCOUNTER → 2024-07-17 15:14 | Outpatient (BNVA) | payer BC, SELFPAY | PROVIDERS: PCP Internal Medicine; Visit Provider Internal Medicine | DX: Z13.89 Encounter for screening for other disorder (principal) ==

== ENCOUNTER 2024-08-27 13:07 | Outpatient (AMB) | payer BC, SELFPAY ==
--- NOTE | 2024-08-27 13:08 | MHC.PC.OV ---
Intake Visit Reasons: poison jes? Intake Note: Patient is here to follow up on possible Poison Jes on both legs and arms. Medical Cost Consultant Required: No Security And Compliance Analyst: Not Required per policy Accompanied by: Self / Same As Patient Allergies No Known Allergies Allergy (Mild, Verified 08/27/24 13:09) NONE Medication List - Last Reconciled 08/27/24 by Teresa Vernon PA-C albuterol sulfate 90 mcg/actuation (Ventolin HFA) 2 puffs inhalation Q6H PRN budesonide-formoterol 160-4.5 mcg/actuation (Symbicort) 2 puffs inhalation BID buprenorphine-naloxone 12-3 mg (Suboxone) 1 film buccal Q24H lisinopril-hydrochlorothiazide 10-12.5 mg 1 tab PO DAILY sildenafil 50 mg PO DAILY PRN tiotropium bromide 2.5 mcg/actuation (Spiriva Respimat) 2 puffs PO DAILY Tobacco use date assessed: 07/17/24 Dental Screening Dental Screen Date: 07/17/24 HPI poison jes? HPI Details 59-year-old male with past medical history of hypertension, COPD, hypercholesterolemia, basal cell adenocarcinoma last seen 06/2024 presenting via telehealth for acute problem. 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 He mentions having a rash on the legs and bilateral forearms that is itchy. The rash typically comes down throughout the day after a shower but does flare up at night when he is sleeping as he does scratch in his sleep. He describes the rash as blotchy and red without pain but does itch. He states he has had poison jes and poison sumac in the past and rash is very similar. [facility] Medical History Hesitancy of micturition Opioid use disorder Anxiety and depression Opioid abuse Hypercholesterolemia Vitamin D deficiency Low back pain COPD (chronic obstructive pulmonary disease) Hypertension Surgical History History of basal cell carcinoma excision History of inguinal hernia repair Family History Father CHF (congestive heart failure) Hypertension CVD (cardiovascular disease) Mother Dementia Depression with anxiety Maternal Grandmother Diabetes Maternal Grandfather Cancer Brother In good health Son In good health Social History Housing: Apartment Alcohol intake: current Alcohol intake frequency: holidays/special occasions only Patient Tobacco Use Status: Never used Tobacco Tobacco use type: Cigarette e-Cigarette/Vaping Use: Never Used Second Hand Smoke Exposure: No service: No Current occupational status: employed Cognitive needs: No Hearing needs: No Vision needs: Yes (Glasses) Questionnaire Thrive Questionnaire Date Thrive assessed: 07/17/24 SAMIRA-7 AMB Questionnaire SAMIRA-7 Date SAMIRA - 7 assessed: 06/21/24 Source: Developed by Drs. Brooks Peña, Bella Sanchez, Miguel Moreno and colleagues, with an educational janki from [employer]. Review of Systems Const Denies body aches, Denies chills, Denies fever(s) and Denies poor appetite Eyes Reports no additional complaints ENT Denies dizziness Card Denies chest pain and Denies dyspnea Resp Denies dyspnea Reports no additional complaints Skin/Breast Reports system reviewed and no additional complaints, except as documented and Reports as per HPI Neuro Denies dizziness Psych Reports no additional complaints Physical exam (Primary Care) Vital Signs: Physical exam not performed today due to nature of telehealth visit Tobacco/Smoking Status: Tobacco use Status Tobacco use date assessed 07/17/24 08/27/24 13:11 Patient Tobacco Use Status Never used Tobacco 08/27/24 13:11 Tobacco use type Cigarette 08/27/24 13:11 e-Cigarette/Vaping Use Never Used 08/27/24 13:11 Thrive Assessment: Date of Thrive Assessment Date Thrive assessed 07/17/24 08/27/24 13:11 Telehealth Telehealth Telehealth Platform: Telephone Location of provider rendering services: practice address Location of patient: address on file Patient Identification confirmed using: Name, : Yes Telehealth method: voice only Patient verbally consented to treatment: Yes Patient verbally consented to billing insurance company: Yes Patient informed of any privacy concerns related to visit: Yes Coding Level of Care Code Tele Est Pt Level 3 (49341) Diagnoses Contact dermatitis due to poison jes L23.7 Assessment & Plan Assessment & Plan (1) Contact dermatitis due to poison jes: Comment: leg leg and carrasco Code(s): L23.7 - Allergic contact dermatitis due to plants, except food Category: Medical Plan: Plan to send prednisone taper and discussed with patient red flag symptoms and when to present for re-evaluation. I also did discuss that we are not evaluated in the rash over the phone today and described the concern for cellulitis and when to reach out to the office. He does have an appointment on Tuesday with Dr. Ruiz plan to recheck rash at that time or sooner if needed. Patient may use [id number] antihistamine as well for itching. Plan This note was constructed using voice recognition software. While every effort has been made to ensure accuracy and lacing string cutter, still areas may have been included sometimes these areas may affect the content or meeting of the given symptoms. Total time spent caring for the patient today was 20 minutes. This includes time spent before the visit reviewing the chart, time spent during the visit, and time spent after the visit and documentation. Medications: New prednisone Take 4 tablets on days 1-2, take 3 tablets on days 3-4, take 2 tablets on days 5-6, take 1 tablet on days 7-8. 10 mg PO DIRECTED 20 tabs 0RF
--- OUTSIDE RECORDS SUMMARY | 2024-08-27 14:11 | XMS_ITS | Patient Health Record ---
Author Organization [facility] Address [address] [place] [address] Care Team Providers Care Interpretive Program Coordinator Name Role Phone Po Mc LANGSTON Primary Care Provider Unavailanusha e Brooks Nobles Unavailable [phone] Reason For Referral Referring Provider First Name Mc Referring Provider Last Name Po Referring Provider Speciality Internal M edicine Referred Organization [facility] Referred Provider Brooks Nobles Referred Address [address] [facility],[address],[place],[address], Referred Provider Specialty Gastroentero logy Referral Priority [...] Problem Status W/U Status Risk Notes Problem [id number] Encounter for screening for malignant neoplasm of colon (Z12.11) Active confirmed Problem [id number] Preprocedural examination (Z01.818) Active confirmed Plan Of Treatment Future Test Test Name Order Date COLONOSCOPY 11/28/2018 Next Appt Details Provider Name:Brooks Nobles , 09/11/2024 02:20:00 PM, [address] [facility], [address], [place], [address], Insurance Providers Payer Name Payer Address Payer Phone Subscriber Number Group Number Insured Name Patient Relationship to Insured Coverage Start Date Coverage End Date [facility] [employer] PROFESSIONAL CLAIMS [address] [place] [address] [phone] [id number] 2 FABRICIO IRENE Self - patient is the insured Medical (General) History Medical History History ICD Code Hypertension Denies [place],DM,CVA,renal disease COPD Hyperlipidemia Surgical History Surgery Date(Month/Year) Hernia repair--left inguinal 2014 Eye surgery as a child
== END 2024-08-27 13:23 | disposition home or self-care (01) ==
LOC: HO.HMCH 13:07
PROVIDERS: PCP Internal Medicine
DX: L23.7 Allergic contact dermatitis due to plants, except food (principal)

== ENCOUNTER → 2024-08-27 13:07 | Outpatient (BNVA) | payer BC, SELFPAY | PROVIDERS: PCP Internal Medicine | DX: L23.7 Allergic contact dermatitis due to plants, except food (principal); I10 Essential (primary) hypertension; J44.9 Chronic obstructive pulmonary disease, unspecified; E78.00 Pure hypercholesterolemia, unspecified | CPT/HCPCS: 98966 ==

== ENCOUNTER 2024-08-30 07:09 | Outpatient (REF) | payer BC, SELFPAY ==
--- OUTSIDE RECORDS SUMMARY | 2024-08-30 07:11 | XMS_ITS | Patient Health Record ---
Author Organization [facility] Address [address] [place] [address] Care Team Providers Care Doughnut Batter Mixer Name Role Phone Po Mc LANGSTON Primary Care Provider Unavailanusha e Brooks Nobles Unavailable [phone] Reason For Referral Referring Provider First Name Mc Referring Provider Last Name Po Referring Provider Speciality Internal M edicine Referred Organization [facility] Referred Provider Brooks Nobles Referred Address [address] [facility],[place],[address], Referred Provider Specialty Gastroentero logy Referral Priority [...] Problem Status W/U Status Risk Notes Problem [id number] Encounter for screening for malignant neoplasm of colon (Z12.11) Active confirmed Problem [id number] Preprocedural examination (Z01.818) Active confirmed Plan Of Treatment Future Test Test Name Order Date COLONOSCOPY 11/28/2018 Next Appt Details Provider Name:Brooks Nobles , 09/11/2024 02:20:00 PM, [address] [facility], [address], [place], [address], Insurance Providers Payer Name Payer Address Payer Phone Subscriber Number Group Number Insured Name Patient Relationship to Insured Coverage Start Date Coverage End Date [facility] [employer] PROFESSIONAL CLAIMS [address] [place] [address] [id number] 2 FABRICIO IRENE Self - patient is the insured Medical (General) History Medical History History ICD Code Hypertension Denies [place],DM,CVA,renal disease COPD Hyperlipidemia Surgical History Surgery Date(Month/Year) Hernia repair--left inguinal 2014 Eye surgery as a child
[2024-08-30 07:27] LABS: MANUAL DIFF FLAG NO
[2024-08-30 08:06] LABS: Basophils Percent Auto 0.9 % (0-2); Eosinophils Absolute Auto 0.1 X10*3/uL (0.0-0.4); Eosinophils Percent Auto 3.2 % (0-4); Hematocrit 38.5 % (42.0-52.0); Hemoglobin 13.8 g/dl (14.0-18.0); Imm Gran Abs Auto 0.01 X10*3/uL (0.00-0.03); Imm Gran Pct Auto 0.2 % (0.0-0.4); Immature Retic Fraction 4.9 % (2.3-13.4); Lymphocytes Absolute Auto 1.3 X10*3/uL (1.2-4.9); Lymphocytes Percent Auto 29.4 % (20-40); Mean Corpuscular HGB Conc 35.8 g/dl (31.0-36.0); Mean Corpuscular Hemoglobin 31.4 pg (27.0-33.0); Mean Corpuscular Volume 87.7 fL (80.0-98.0); Mean Platelet Volume 10.5 fL (9.4-12.4); Monocytes Absolute Auto 0.4 X10*3/uL (0.1-1.2); Monocytes Percent Auto 10.1 % (2-11); Neutrophils Absolute Auto 2.4 x10*3/uL (2.0-8.3); Neutrophils Percent Auto 56.2 % (45-73); Platelet Count 195 X10*3/uL (160-400); Red Blood Count 4.39 X10*6/uL (4.60-5.80); Red Cell Distribution Width 12.4 % (11.0-16.0); Retic HGB Equivalent 34.9 pg (30.0-35.0); Reticulocytes Absolute 0.045 X10*6/uL (0.026-0.095); White Blood Count 4.4 X10*3/uL (4.8-10.8)
[2024-08-30 08:40] LABS: Alanine Aminotransferase 30 U/L (0-40); Albumin Level 4.3 g/dL (3.5-5.0); Alkaline Phosphatase 59 U/L (39-117); Anion Gap 10 (12-20); Aspartate Amino Transferase 40 U/L (5-37); Bilirubin Total 0.9 mg/dL (0.0-1.0); Blood Urea Nitrogen 14 mg/dL (9-16); Calcium 9.4 mg/dL (8.4-10.2); Carbon Dioxide 31 mmol/L (22-29); Chloride 103 mmol/L (96-108); Cholesterol 230 mg/dL (<200); Estimated Glomerular Filt Rate > 60; Glucose Random 90 mg/dL (60-115); HDL Cholesterol 80 mg/dL (>40); Iron 127 mcg/dL (45-160); LDL Cholesterol Calculated 140 mg/dL (<100); Percent Iron Saturation 45 % (15-50); Potassium 3.9 mmol/L (3.3-5.1); Sodium 140 mmol/L (135-145); Total Iron Binding Capacity 283 mcg/dL (228-428); Triglycerides 53 mg/dL (<150); Unsaturated Iron Binding 156 ug/dL
[2024-08-30 09:00] LABS: Ferritin 269 ng/mL (20-250); Free T4 (Free Thyroxine) 0.89 ng/dL (0.71-1.85); Thyroid Stimulating Hormone 1.09 uIU/mL (0.32-4.0)
[2024-08-30 09:07] LABS: Folate 12.9 ng/mL (> or = 4.0); Prostate Specific Antigen Scr 0.45 ng/mL (<0.05-4.0); Vitamin B12 375 pg/mL (200-900)
[2024-09-04 11:18] LABS: Testosterone, Free 29.6 pg/mL (35.0-155.0); Testosterone, Total 277 ng/dL (250-1100)
== END 2024-08-30 07:10 | disposition home or self-care (01) ==
LOC: HO.LAB 07:09
PROVIDERS: PCP Internal Medicine; Visit Provider Internal Medicine
DX: N52.9 Male erectile dysfunction, unspecified (principal); D64.9 Anemia, unspecified; E78.00 Pure hypercholesterolemia, unspecified; Z12.5 Encounter for screening for malignant neoplasm of prostate
CPT/HCPCS: 36415; 80053; 80061; 82607; 82728; 82746; 83540; 84153; 84402; 84403; 84439; 84443; 85025; 85045

== ENCOUNTER 2024-08-31 10:10 | Outpatient (AMB) | payer BC, SELFPAY ==
--- NOTE | 2024-08-31 10:11 | MHC.OFFVIS ---
Vital Signs 08/31/24 10:13 Height 5 ft 9 in Pulse 59 Pulse Source Pulse Oximeter Pulse Oximetry (%) 99 Oxygen Delivery Method Room Air Intake Visit Reasons: MAT Allergies No Known Allergies Allergy (Mild, Verified 08/31/24 10:13) NONE HPI HPI MAT: Details: He is doing well with dose of Suboxone 12/3 daily. 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 [facility] Medical History Hesitancy of micturition Opioid use disorder Anxiety and depression Opioid abuse Hypercholesterolemia Vitamin D deficiency Low back pain COPD (chronic obstructive pulmonary disease) Hypertension Surgical History History of basal cell carcinoma excision History of inguinal hernia repair Family History Father CHF (congestive heart failure) Hypertension CVD (cardiovascular disease) Mother Dementia Depression with anxiety Maternal Grandmother Diabetes Maternal Grandfather Cancer Brother In good health Son In good health Social History Housing: Apartment Alcohol intake: current Alcohol intake frequency: holidays/special occasions only Patient Tobacco Use Status: Never used Tobacco Tobacco use type: Cigarette e-Cigarette/Vaping Use: Never Used Second Hand Smoke Exposure: No service: No Current occupational status: employed Cognitive needs: No Hearing needs: No Vision needs: Yes (Glasses) Review of Systems Const All systems reviewed & are unremarkable except as noted in HPI and below Physical Exam Vital Signs: Last Vital Signs Pulse 59 08/31/24 10:13 Pulse Ox 99 08/31/24 10:13 Oxygen Delivery Method Room Air 08/31/24 10:13 Const General: cooperative Assessment & Plan Assessment & Plan (1) Opioid use disorder, moderate, in sustained remission: Comment: He is doing well He has no HIV risk and no need for counseling. Code(s): F11.21 - Opioid dependence, in remission Category: Medical Plan: I wrote for one month and two refills Suboxone. See in three months. Medications: New buprenorphine-naloxone 12-3 mg (Suboxone) 1 film sublingual Q24H 30 days 30 ea 2RF Coding Level of Care Code Est Pt Level 3 (23889) Diagnoses Opioid use disorder, moderate, in sustained remission F11.21
[2024-08-31 10:13] VITALS: PULSE 59; O2SAT 99
--- OUTSIDE RECORDS SUMMARY | 2024-08-31 10:53 | XMS_ITS | Patient Health Record ---
Author Organization [facility] Address [address] [place] [address] Care Team Providers Care Manager Medical Affairs Name Role Phone Po Mc LANGSTON Primary Care Provider Unavailanusha e Brooks Nobles Unavailable [phone] Reason For Referral Referring Provider First Name Mc Referring Provider Last Name Po Referring Provider Speciality Internal M edicine Referred Organization [facility] Referred Provider Brooks Nobles Referred Address [address] [facility],[address],[place],[address], Referred Provider Specialty Gastroentero logy Referral Priority [...] Problem Status W/U Status Risk Notes Problem [id number] Encounter for screening for malignant neoplasm of colon (Z12.11) Active confirmed Problem [id number] Preprocedural examination (Z01.818) Active confirmed Plan Of Treatment Future Test Test Name Order Date COLONOSCOPY 11/28/2018 Next Appt Details Provider Name:Brooks Nobles , 09/11/2024 02:20:00 PM, [address] [facility], [address], [place], [address], Insurance Providers Payer Name Payer Address Payer Phone Subscriber Number Group Number Insured Name Patient Relationship to Insured Coverage Start Date Coverage End Date [facility] [employer] PROFESSIONAL CLAIMS [address] [place] [address] [id number] 2 FABRICIO IRENE Self - patient is the insured Medical (General) History Medical History History ICD Code Hypertension Denies [place],DM,CVA,renal disease COPD Hyperlipidemia Surgical History Surgery Date(Month/Year) Hernia repair--left inguinal 2014 Eye surgery as a child
== END 2024-08-31 11:08 | disposition home or self-care (01) ==
LOC: HO.HCC 10:10
PROVIDERS: PCP Internal Medicine; Visit Provider Internal Medicine
DX: F11.21 Opioid dependence, in remission (principal)
CPT/HCPCS: 99213

== ENCOUNTER → 2024-08-31 10:10 | Outpatient (BNVA) | payer BC, SELFPAY | PROVIDERS: PCP Internal Medicine; Visit Provider Internal Medicine | DX: Z13.31 Encounter for screening for depression (principal); Z00.00 Encounter for general adult medical examination without abnormal findings; I10 Essential (primary) hypertension; J43.1 Panlobular emphysema; E78.00 Pure hypercholesterolemia, unspecified; D64.9 Anemia, unspecified; F11.21 Opioid dependence, in remission | CPT/HCPCS: 96127 ==

== ENCOUNTER 2024-08-31 16:05 | Outpatient (AMB) | payer BC, SELFPAY ==
--- NOTE | 2024-08-31 16:26 | A.OFFPC_ITS ---
Vital Signs 08/31/24 16:28 Height 5 ft 9 in Weight 156 lb 6 oz BMI 23.1 BP 146/94 H Blood Pressure Location Lt brachial Position Sitting Pulse 58 Pulse Source Pulse Oximeter Temp 96.9 F Temp Source Temporal Artery Scan Pulse Oximetry (%) 99 Oxygen Delivery Method Room Air Intake Visit Reasons: Annual PE [employer] Rec[employer] Required: No Accompanied by: Self / Same As Patient Allergies No Known Allergies Allergy (Mild, Verified 08/31/24 16:32) NONE Medication List - Last Reconciled 08/31/24 by Mc Ruiz MD albuterol sulfate 90 mcg/actuation (Ventolin HFA) 2 puffs inhalation Q6H PRN budesonide-formoterol 160-4.5 mcg/actuation (Symbicort) 2 puffs inhalation BID buprenorphine-naloxone 12-3 mg (Suboxone) 1 film sublingual Q24H 30 days lisinopril-hydrochlorothiazide 10-12.5 mg 1 tab PO DAILY sildenafil 50 mg PO DAILY PRN tiotropium bromide 2.5 mcg/actuation (Spiriva Respimat) 2 puffs PO DAILY Tobacco use date assessed: 08/31/24 Dental Screening Dental Screen Date: 08/31/24 Did you have a dental visit in the last 12 months?: Yes Did you have a dental problem in the last 6 months where you did not have access to dental care?: No Was dental information given to patient?: Patient has dentist HPI Annual PE HPI Details Noted weight loss but no other symptoms PFSH Medical History Hesitancy of micturition Opioid use disorder Anxiety and depression Opioid abuse Hypercholesterolemia Vitamin D deficiency Low back pain COPD (chronic obstructive pulmonary disease) Hypertension Surgical History History of basal cell carcinoma excision History of inguinal hernia repair Family History Father CHF (congestive heart failure) Hypertension CVD (cardiovascular disease) Mother Dementia Depression with anxiety Maternal Grandmother Diabetes Maternal Grandfather Cancer Brother In good health Son In good health Social History (Updated 08/31/24 @ 17:02 by Mc Ruiz MD) Housing: Apartment Alcohol intake: current Alcohol intake frequency: holidays/special occasions only Comment: beer QD Patient Tobacco Use Status: Never used Tobacco Tobacco use type: Cigarette e-Cigarette/Vaping Use: Never Used Second Hand Smoke Exposure: No service: No Current occupational status: employed Cognitive needs: No Hearing needs: No Vision needs: Yes (Glasses) Questionnaire PHQ-9 Over the last 2 weeks, how often have you been bothered by any of the following problems? 1. Little interest or pleasure in doing things: not at all 2. Feeling down, depressed, or hopeless: not at all 3. Trouble falling or staying asleep, or sleeping too much: not at all 4. Feeling tired or having little energy: not at all 5. Poor appetite or overeating: not at all 6. Feeling bad about yourself - or that you are a failure or have let yourself or your family down: not at all 7. Trouble concentrating on things, such as reading the newspaper or watching television: not at all 8. Moving or speaking so slowly that other people could have noticed. Or the opposite - being so fidgety or restless that you have been moving around a lot more than usual: not at all 9. Thoughts that you would be better off or of hurting yourself in some way: not at all Total score: 0 Depression Screening Interpretation: Negative Depression Screening Done: Yes 72955 - PHQ-9 Billing: Yes Source: Developed by Drs. Brooks Peña, Bella Sanchez, Miguel Moreno and colleagues, with an educational janki from [employer]. Thrive Questionnaire Date Thrive assessed: 08/31/24 I am a: Patient What is your living situation today?: I have a steady place to live Within the past 12 months, did the food you bought not last and you didn't have the money to get more?: Never true Within the past 12 months, did you worry whether your food would run out before you got money to buy more?: Never true Do you have trouble paying for medicines?: No Do you have trouble getting transportation to medical appointments?: No Do you have trouble paying your heating and electricity bill?: No Do you have trouble taking care of your child, family member or friend?: No Do you have trouble with day-to-day activities such as bathing, preparing meals, shopping, managing finances, etc.?: No Are you currently unemployed and looking for a job?: No Are you interested in more education?: Yes Please select the resources that you would like help with: Job search/training Currently or been in a relationship where the following occur: No concerns reported THRIVE Score: 0 AUDIT C Alcohol Use Questionnaire (AUDIT-C) 1. How often do you have a drink containing alcohol?: 4 or more times a week 2. How many drinks containing alcohol do you have on a typical day when you are drinking?: 10 or more 3. How often do you have six or more drinks on one occasion?: Never Total Score: 8 SAMIRA-7 AMB Questionnaire SAMIRA-7 Date SAMIRA - 7 assessed: 08/31/24 Feeling nervous, anxious, or on edge: 0 = Not at all Not being able to stop or control worryin = Not at all Worrying too much about different things: 0 = Not at all Trouble relaxin = Several days Being so restless that it is hard to sit still: 0 = Not at all Becoming easily annoyed or irritable: 0 = Not at all Feeling afraid as if something awful might happen: 0 = Not at all Total SAMIRA-7 score (0-4 normal; 5-9 mild; 10-14 moderate; 15-21 severe): 1 Source: Developed by Drs. Brooks Peña, Bella Sanchez, Miguel Moreno and colleagues, with an educational janki from [employer]. SAMIRA-7 Assessment Billing SAMIRA-7 Assessment Tool: SAMIRA-7 Assessment 13408 Review of Systems Const Denies poor appetite and Denies weakness Eyes Denies no additional complaints ENT Reports Normal hearing present, Denies dizziness, Denies nasal congestion, Denies tinnitus and Denies sore throat Card Denies chest pain, Denies syncope, Denies rapid heart rate and Denies dyspnea Resp Denies cough and Denies dyspnea GI Denies change in stool character, Reports constipation, Denies diarrhea, Denies nausea and Denies vomiting Denies dysuria and Denies urinary frequency Neuro Reports Normal hearing present, Denies confusion, Denies dizziness, Denies syncope and Denies weakness Psych Denies confusion Physical exam (Primary Care) Vital Signs: Last Vital Signs Temp 96.9 F 08/31/24 16:28 Pulse 58 08/31/24 16:28 BP 146/94 H 08/31/24 16:28 Pulse Ox 99 08/31/24 16:28 Oxygen Delivery Method Room Air 08/31/24 16:28 BMI result Body Mass Index 23.1 Tobacco/Smoking Status: Tobacco use Status Tobacco use date assessed 08/31/24 08/31/24 16:38 Patient Tobacco Use Status Never used Tobacco 08/31/24 17:02 Tobacco use type Cigarette 08/31/24 17:02 e-Cigarette/Vaping Use Never Used 08/31/24 17:02 PHQ-9: PHQ-9 Score PHQ-9: Total score 0 08/31/24 16:56 Depression Screening Interpretation: Negative Thrive Assessment: Date of Thrive Assessment Date Thrive assessed 08/31/24 08/31/24 16:38 Currently or been in a relationship where the following occur: No concerns reported Const General: No confusion Orientation/consciousness: No confusion HENMT Head: Yes normocephalic Ears: external ears normal and TM's normal bilaterally Face and sinus: Yes normal facial exam Mouth: moist mucous membranes Throat: Yes tonsils normal Eyes Conjunctivae: conjunctivae normal Pupils: Equal, round and reactive pupils present and Pupil accommodation reflex normal Direct Ophthalmoscopy: normal light reflex Neck Neck: No lymphadenopathy Thyroid: Thyroid normal Chest Chest palpation & inspection: normal inspection of the chest Resp Effort & Inspection: normal respiratory effort and no audible wheezes Auscultation: clear to auscultation bilaterally, no crackles, no wheezes and lung sounds not diminished Cardio Rate: regular rate Rhythm: regular rhythm Peripheral pulses: radial pulses present and dorsalis pedis present GI Other: colon test pending Palpation (GI): no masses Auscultation: normal bowel sounds and normoactive bowel sounds Rectal Exam - Male: Yes deferred Other: decline Skin General skin exam: no rashes or lesions noted Rashes: no rashes Neuro General: No confusion Cranial nerves: Yes Equal, round and reactive pupils present and Yes Normal hearing present Cognition (Neuro): normal cognition Gait exam (Neuro): Normal gait present Motor exam (neuro): 5/5 motor strength present throughout Deep tendon reflexes (DTR's): Right brachioradialis reflex intensity grade: 2+, Left brachioradialis reflex intensity grade: 2+, Right patellar reflex intensity grade: 2+ and Left patellar reflex intensity grade: 2+ Extrem General: No edema Coding Level of Care Code Est Pt Prev Care 40-64y(55903) Diagnoses Colon cancer screening Z12.11 Annual physical exam Z00.00 Essential hypertension I10 Hypertension type: essential hypertension Panlobular emphysema J43.1 COPD type: emphysema Emphysema type: panlobular Hypercholesterolemia E78.00 Anemia D64.9 Opioid use disorder, moderate, in sustained remission F11.21 Additional Codes SAMIRA-7 Assessment Billing - SAMIRA-7 Assessment Tool: SAMIRA-7 Assessment 86456 ([id number]) PHQ-9 - 30371 - PHQ-9 Billing: Yes ([id number]) Assessment & Plan Assessment & Plan (1) Colon cancer screening: Comment: Tubular adenoma 02/2019 Dr. Nobles Code(s): Z12.11 - Encounter for screening for malignant neoplasm of colon Category: Medical Plan: Patient is reminded about colonoscopy (2) Annual physical exam: Code(s): Z00.00 - Encounter for general adult medical examination without abnormal findings Category: Medical Plan: Patient is advised to eat healthy, keep well hydrated, keep active and have adequate sleep. (3) Hypertension: Code(s): I10 - Essential (primary) hypertension Category: Medical Qualifiers: Hypertension type: essential hypertension Qualified Code(s): I10 - Essential (primary) hypertension Plan: Patient presently not on any medication, low-salt diet (4) COPD (chronic obstructive pulmonary disease): Code(s): J44.9 - Chronic obstructive pulmonary disease, unspecified Category: Medical Qualifiers: COPD type: emphysema Emphysema type: panlobular Qualified Code(s): J43.1 - Panlobular emphysema Plan: Albuterol inhaler as needed with Symbicort twice a day and remember to rinse mouth after using. Continue with Spiriva. (5) Hypercholesterolemia: Code(s): E78.00 - Pure hypercholesterolemia, unspecified Category: Medical Plan: Avoid fried foods, chicken skin, eggs, butter margarine, pastries and meat. Be it pork or beef they have a lot of cholesterol LDL goal of less than 130 and triglyceride of less than 150 (6) Anemia: Code(s): D64.9 - Anemia, unspecified Category: Medical Plan: Chronic and stable and will continue to follow-up (7) Opioid use disorder, moderate, in sustained remission: Comment: He is doing well He has no HIV risk and no need for counseling. Code(s): F11.21 - Opioid dependence, in remission Category: Medical Plan: Continue to follow-up. Comprehensive care. Plan History of Present Illness The patient is a 59-year-old male presenting for a physical examination and management of ongoing health concerns. He has a significant medical history of hypertension, hypercholesterolemia, and COPD. There is documentation of opioid use disorder, with the patient currently on Suboxone for management. Previous lab work indicates stable anemia and mild elevation in liver enzymes with a normal ultrasound. He has a history of elevated LDL cholesterol levels and was previously managed on simvastatin. The current plan addresses monitoring and potential reinstitution of therapy, pending lifestyle modifications. Family history indicates esophageal cancer in his grandfather and heart disease that led to his father's early . His regular running could contribute to higher HDL cholesterol, offering protective cardiovascular effects. He reports alcohol consumption with regular exercise routines. The patient also had allergic contact dermatitis, treated previously, with no immediate recurrence reported. Health Maintenance - Colonoscopy update is due, last performed in 2019. - Engage in low-salt diet and monitor blood pressure. - LDL cholesterol management targeting a goal of <130 mg/dL. - Continue exercising regularly. - Encourage cholesterol-friendly diet to manage elevated LDL. - Discussion of shingles vaccination provided; opportunity to receive was highlighted. Social History - Consumes approximately one beer daily, with increased intake on weekends. - Engages in regular running activities, participates in weekly 5K races. - Denies smoking or using recreational drugs currently. - Active lifestyle noted, possibly influencing HDL cholesterol levels. Review of Systems - General: Denies fever, weight loss, and fatigue. - Cardiovascular: Denies chest pain, palpitations, or exertional dyspnea. - Respiratory: Rarely wakes up short of breath, denies cough or wheezing. - Gastrointestinal: Denies nausea, vomiting, swallowing difficulties, or constipation; reports normal bowel movements. - Genitourinary: Reports urinating once or twice nightly. - Neurological: Denies dizziness or syncope. - Musculoskeletal: No joint pain or swelling reported. - Dermatological: History of allergic contact dermatitis without recent flare. Physical Exam General: Cooperative, healthy appearing, comfortable, no acute distress and well developed Orientation: Patient oriented x3 Limitations: No limitations Head: Normal to inspection Ears: Hearing grossly normal bilaterally, some earwax present but open Nose: Normal external nose present Face and sinus: Normal facial exam Eyes: Appearance normal, both eyes and all related structures; nuclear cataract noted in left eye, lazy eye since Neck: Normal visual inspection and Yes full ROM Respiratory: Normal respiratory effort and able to speak in complete sentences. Clear to auscultation bilaterally Cardiovascular: Regular rate and rhythm. Normal S1 and S2, slight murmur noted GI: Normal to inspection. Soft to palpation and nontender Skin: No rashes or lesions noted Neuro: Patient oriented x3 Extremities: Normal to inspection Results - Labs: Hemoglobin at 13.8 g/dL (anemia), LDL cholesterol 140 mg/dL, normal thyroid function, PSA normal. - Tests: Liver ultrasound normal, demonstrating persistent mild enzyme elevation. - Diagnostics: Testosterone level pending. Plan Continued use of current inhaled therapies for COPD was discussed, with emphasis on rinsing post-Symbicort use. The need for cholesterol monitoring with potential reintroduction of statin therapy was communicated, based on anticipated lipid panel results in five months. Suggested maintaining current blood pressure management via diet and retesting cholesterol. Liver enzyme surveillance continues without active intervention due to normal ultrasound results. Encouraged colonoscopy follow-up and evaluated shingles vaccination as supplementary care. Scheduled reassessment in three months to evaluate blood pressure and weight, determining further action based on physical assessments and test outcomes. Patient was informed and verbally consented to the use of an ambient scribe for clinic note documentation during this visit. Discussion Notes I discussed ongoing management and therapeutic options for the patient's hypertension, hypercholesterolemia, and COPD. Rationale for continued inhaler use and potential statin reintroduction were detailed, including the importance of lipid control to mitigate cardiovascular risks. The benign nature of previous liver ultrasound findings was conveyed, supporting the continued monitoring of mild enzyme elevation. Comprehensive lifestyle and dietary advice were provided concerning cholesterol management. Possible side effects and benefits of dietary adjustments were outlined, reinforcing good physical activity practices. Ensured understanding of upcoming testosterone results and recommended staying up-to-date with colon cancer screening and vaccination opportunities. Scheduled a three-month follow-up and emphasized continued regular monitoring. Patient Instructions - Use albuterol and Symbicort as directed for COPD. Rinse mouth after Symbicort. - Follow a low-salt diet. - Limit high cholesterol foods such as fast foods and fried items. - Continue running and maintain physical activity. - Follow up with the [facility] for weight concerns. - Discuss a shingles vaccine with the local pharmacy. - Keep up with regular screenings, including colonoscopy. - Revisit for a check-up in three months. - Report any new or worsening symptoms like shortness of breath or persistent cough. Orders: Orders Hemoglobin A1c 5 Months E78.00 - Pure hypercholesterolemia, unspecified Lipid Panel 5 Months E78.00 - Pure hypercholesterolemia, unspecified Comprehensive Met. Panel 5 Months E78.00 - Pure hypercholesterolemia, unspecified Complete Blood Count Auto Diff 5 Months E78.00 - Pure hypercholesterolemia, unspecified Medications: Refilled lisinopril-hydrochlorothiazide 10-12.5 mg 1 tab PO DAILY 30 tabs 3RF I10 - Essential (primary) hypertension tiotropium bromide 2.5 mcg/actuation (Spiriva Respimat) 2 puffs PO DAILY 4 mL 11RF I10 - Essential (primary) hypertension
[2024-08-31 16:28] VITALS: BP 146/94; PULSE 58; TEMP 36.1; O2SAT 99; BMI 23.1
== END 2024-08-31 17:18 | disposition home or self-care (01) ==
LOC: HO.HMCH 16:05
PROVIDERS: PCP Internal Medicine; Visit Provider Internal Medicine
DX: Z00.00 Encounter for general adult medical examination without abnormal findings (principal); J43.1 Panlobular emphysema; F11.21 Opioid dependence, in remission; Z12.11 Encounter for screening for malignant neoplasm of colon; I10 Essential (primary) hypertension; E78.00 Pure hypercholesterolemia, unspecified; D64.9 Anemia, unspecified

== ENCOUNTER 2024-11-30 09:30 | Outpatient (AMB) | payer BC, SELFPAY ==
--- NOTE | 2024-11-30 09:33 | MHC.OFFVIS ---
Vital Signs 11/30/24 09:38 Height 5 ft 9 in Weight 168 lb BMI 24.8 Pulse 54 Pulse Source Pulse Oximeter Pulse Oximetry (%) 99 Oxygen Delivery Method Room Air Intake Visit Reasons: MAT Allergies No Known Allergies Allergy (Mild, Verified 11/30/24 09:39) NONE HPI Comments Details: He reports doing well. He reports dose appropriate. He says school has started for the year. [facility] Medical History Hesitancy of micturition Opioid use disorder Anxiety and depression Opioid abuse Hypercholesterolemia Vitamin D deficiency Low back pain COPD (chronic obstructive pulmonary disease) Hypertension Surgical History History of basal cell carcinoma excision History of inguinal hernia repair Family History Father CHF (congestive heart failure) Hypertension CVD (cardiovascular disease) Mother Dementia Depression with anxiety Maternal Grandmother Diabetes Maternal Grandfather Cancer Brother In good health Son In good health Social History Housing: Apartment Alcohol intake: current Alcohol intake frequency: holidays/special occasions only Comment: beer QD Patient Tobacco Use Status: Never used Tobacco Tobacco use type: Cigarette e-Cigarette/Vaping Use: Never Used Second Hand Smoke Exposure: No service: No Current occupational status: employed Cognitive needs: No Hearing needs: No Vision needs: Yes (Glasses) Review of Systems Const All systems reviewed & are unremarkable except as noted in HPI and below Physical Exam Vital Signs: Last Vital Signs Pulse 54 11/30/24 09:38 Pulse Ox 99 11/30/24 09:38 Oxygen Delivery Method Room Air 11/30/24 09:38 BMI result Body Mass Index 24.8 Const General: cooperative Assessment & Plan Assessment & Plan (1) Opioid use disorder, moderate, in sustained remission: Comment: He is doing well He has no HIV risk and no need for counseling. Code(s): F11.21 - Opioid dependence, in remission Category: Medical Plan: Continue same dose,12/3 daily. See as scheduled. Medications: New buprenorphine-naloxone 12-3 mg (Suboxone) 1 film sublingual Q24H 30 ea 2RF 30 days Coding Level of Care Code Est Pt Level 3 (34238) Diagnoses Opioid use disorder, moderate, in sustained remission F11.21
[2024-11-30 09:38] VITALS: PULSE 54; O2SAT 99; BMI 24.8
--- OUTSIDE RECORDS SUMMARY | 2024-11-30 10:14 | XMS_ITS | Patient Health Record ---
Author Organization [facility] Address [address] [place] [address] Care Team Providers Care Plumbing Installer Name Role Phone Po Mc LANGSTON Primary Care Provider Brooks Nation Unavailable [phone] Allergies No Known Allergies Reason For Referral Referring Provider First Name Mc Referring Provider Last Name Po Referring Provider Speciality Internal M edicine Referred Organization [facility] Referred Provider Brooks Nobles Referred Address [address],[place], [place],[address],[place] Referred Provider Specialty Gastroentero logy Referral Priority [...] Status Risk Notes Problem Colon cancer screening (438806763) Colon cancer screening (Z12.11) Active confirmed Problem 324896209 Encounter for screening for malignant neoplasm of colon (Z12.11) Active confirmed Problem [id number] Preprocedural examination (Z01.818) Active confirmed Problem History of adenomatous polyp of colon (870297745) History of adenomatous polyp of colon (Z86.0101) Active confirmed Vital Signs Temperature 97.8 degrees Fahrenheit 09/11/2024 Blood pressure diastolic 01 mm Hg 09/11/2024 Height 71 in 09/11/2024 Blood pressure systolic 001 mm Hg 09/11/2024 Weight 168.4 lbs 09/11/2024 BMI 23.48 kg/m2 09/11/2024 Procedures Procedure Date Ordered Date Performed Result Body Sit e COLONOSCOPY 09/11/2024 N/A Encounters Encounter Location Date Provider Diagnosis [facility] [address] [place] [address] 09/11/2024 Brooks Nobles History of adenomato us [...] Provider Name:Brooks Nobles , 12/17/2024 07:30:00 AM, [address] [place] [address], [id number], Insurance Providers Payer Name Payer Address Payer Phone Subscriber Number Group Number Insured Name Patient Relationship to Insured Coverage Start Date Coverage End Date [employer] [address] [place] [address] [phone] [id number] BRUCE LONDON Self - patient is the insured Medical (General) History Medical History History ICD Code Hypertension Denies MD,DM,CVA,renal disease COPD Hyperlipidemia Screening colonoscopy in Feb revealed several tubular adenomas that were removed Surgical History Surgery Date(Month/Year) basal cell removed Eye surgery as a child Hernia repair--left inguinal 2013
== END 2024-11-30 10:11 | disposition home or self-care (01) ==
LOC: HO.HCC 09:30
PROVIDERS: PCP Internal Medicine; Visit Provider Internal Medicine
DX: F11.21 Opioid dependence, in remission (principal)
CPT/HCPCS: 99213

== ENCOUNTER → 2024-11-30 09:30 | Outpatient (BNVA) | payer BC, SELFPAY | PROVIDERS: PCP Internal Medicine; Visit Provider Internal Medicine | DX: F11.21 Opioid dependence, in remission (principal); Z13.89 Encounter for screening for other disorder ==

== ENCOUNTER 2024-12-17 06:32 | Day surgery (SDC) | payer BC, SELFPAY ==
--- OUTSIDE RECORDS SUMMARY | 2024-10-22 09:48 | XMS_ITS | Patient Health Record ---
Author Organization 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 Name Role Phone Po Mc LANGSTON Primary Care Provider Brooks Nation Unavailable [phone] Allergies No Known Allergies Reason For Referral Referring Provider First Name Mc Referring Provider Last Name Po Referring Provider Speciality Internal M edicine Referred Organization [facility] Referred Provider Brooks Nobles Referred Address [address],[place], [place],[address],[place] Referred Provider Specialty Gastroentero logy Referral Priority Routine Medications Medication SIG (Take, Route, Frequency, Duration) Notes Start Date End Date Status Sildenafil Citrate 50 MG Oral for 30 Days Active Budesonide-Formoterol Fumarate 160-4.5 MCG/ACT Inhalation for 30 Days Active Albuterol Sulfate HFA 108 (90 Base) MCG/ACT Inhalation for 25 Days Active Lisinopril-hydroCHLOROthiazi de 10-12.5 MG Oral for 30 Days Active Buprenorphine HCl-Naloxone HCl 12-3 MG TAKE 1 FILM BUCCALLY EVERY 24 HOURS Sublingual for 13 Days Active Irbesartan 150 MG TAKE 1 TABLET EVERY DAY Orally Once a day Active Simvastatin 5 MG TAKE 1 TABLET BY ANDREINA TH EVERY DAY IN THE EVENING Orally Once a day Active Spiriva Respimat 2.5 MCG/ACT INHALE 2 PU FFS BY MOUTH EVERY DAY Inhalation Once a day Active Immunizations Vaccine Route Administration Date Status Comme nts Influenza Unknown 11/28/2018 Refused Influenza Unknown 09/11/2024 Refused Social History Tobacco Use: Social History [...] Negative Section Notes: Nonsmoker; 1-2 beers QOD Nonsmoker; 1-2 beers QOD Problems Problem Type SNOMED Code ICD Code Onset Dates Problem Status W/U Status Risk Notes Problem Colon cancer screening (Z12.11) Active confirmed Problem 552876978 Encounter for screening for malignant neoplasm of colon (Z12.11) Active confirmed Problem [id number] Preprocedural examination (Z01.818) Active confirmed Problem History of adenomatous polyp of colon (504598568) History of adenomatous polyp of colon (Z86.0101) Active confirmed Vital Signs Temperature 97.8 degrees Fahrenheit 09/11/2024 Blood pressure diastolic 01 mm Hg 09/11/2024 Height 71 in 09/11/2024 Blood pressure systolic 001 mm Hg 09/11/2024 Weight 168.4 lbs 09/11/2024 BMI 23.48 kg/m2 09/11/2024 Procedures Procedure Date Ordered Date Performed Result Body Sit e COLONOSCOPY 09/11/2024 N/A Encounters Encounter Location Date Provider Diagnosis [facility] [address] [place] [address] 09/11/2024 Brooks Nobles History of adenomato us polyp of colon Z86.0101 ; Preprocedural examination Z01.818 and Colon cancer screening Z12.11 Assessments Encounter Date Diagnosis (ICD Code) Assessment Notes Treatment Notes Treatment Clinical Notes Section Notes 09/11/2024 Preprocedural examination (ICD-10 - Z01.818) Overall, Bruce appears quite well. Given his age, good clinical appearance, and history of several tubular adenomas removed over 5 years ago, I did recommend a follow-up colonoscopy for further screening purposes. We did review the rationale for this in regard to colon cancer prevention. Full consent has been obtained for this, including risks of bleeding and perforation. The procedure will be done with monitored anesthesia care. Bruce was comfortable with this plan. Thank you again for allowing me to participate in Bruce's care. I shall continue to keep you advised of his progress.. 09/11/2024 History of adenomatous polyp of colon (ICD-10 - Z86.0101) Overall, Bruce appears quite well. Given his age, good clinical appearance, and history of several tubular adenomas removed over 5 years ago, I did recommend a follow-up colonoscopy for further screening purposes. We did review the rationale for this in regard to colon cancer prevention. Full consent has been obtained for this, including risks of bleeding and perforation. The procedure will be done with monitored anesthesia care. Bruce was comfortable with this plan. Thank you again for allowing me to participate in Bruce's care. I shall continue to keep you advised of his progress.. 09/11/2024 Colon cancer screening (ICD-10 - Z12.11) Overall, Bruce appears quite well. Given his age, good clinical appearance, and history of several tubular adenomas removed over 5 years ago, I did recommend a follow-up colonoscopy for further screening purposes. We did review the rationale for this in regard to colon cancer prevention. Full consent has been obtained for this, including risks of bleeding and perforation. The procedure will be done with monitored anesthesia care. Bruce was comfortable with this plan. Thank you again for allowing me to participate in Bruce's care. I shall continue to keep you advised of his progress.. Plan Of Treatment Pending Test Test Name Order Date COLONOSCOPY 09/11/2024 Future Test Test Name Order Date COLONOSCOPY 11/28/2018 Next Appt Details Provider Name:Brooks Nobles , 12/17/2024 07:30:00 AM, [address] [place] [address] , [place], [place], [phone], Insurance Providers Payer Name Payer Address Payer Phone Subscriber Number Group Number Insured Name Patient Relationship to Insured Coverage Start Date Coverage End Date [employer] [address] [place] [address] [id number] Self - patient is the insured Medical (General) History Medical History History ICD Code Hypertension Denies [place],DM,CVA,renal disease COPD Hyperlipidemia Screening colonoscopy in Feb revealed several tubular adenomas that were removed Surgical History Surgery Date(Month/Year) basal cell removed Eye surgery as a child Hernia repair--left inguinal 2014
--- NOTE | 2024-12-13 12:20 | HO.ANESPROP2 ---
Documented by User: La Nena Orozco NP 12/13/24 12:21 HPI - Anesthesia Eval Consult details Narrative: 59yo M for Colonoscopy Suboxone daily PMFSH Active Problems Active Problems: All Active Problems COPD exacerbation (Acute) Erectile dysfunction (Acute) Basal cell adenocarcinoma (Acute) Colon cancer screening (Acute) Contact dermatitis due to [place] (Acute) Opioid use disorder, moderate, in sustained remission (Acute) Anemia (Acute) Complex renal cyst (Acute) COVID-19 virus infection (Acute) Hesitancy of micturition (Acute) Dysuria (Acute) Complex renal cyst (Acute) Annual physical exam (Acute) COVID-19 virus infection (Acute) LFT elevation (Acute) 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 (Acute) Hypercholesterolemia (Acute) COPD (chronic obstructive pulmonary disease) (Acute) Hypertension (Acute) Past Medical History Medical History Heart murmur Hesitancy of micturition Opioid use disorder Anxiety and depression Opioid abuse Hypercholesterolemia Vitamin D deficiency Low back pain COPD (chronic obstructive pulmonary disease) Hypertension Family History Family History Father CHF (congestive heart failure) Hypertension CVD (cardiovascular disease) Mother Dementia Depression with anxiety Maternal Grandmother Diabetes Maternal Grandfather Cancer Brother In good health Son In good health Surgical History Surgical History History of eyelid surgery H/O colonoscopy History of basal cell carcinoma excision History of inguinal hernia repair Social History Social History Housing: Apartment Alcohol intake: current Alcohol intake frequency: holidays/special occasions only Comment: beer QD Patient Tobacco Use Status: Former Tobacco user Tobacco use type: Cigarette e-Cigarette/Vaping Use: Never Used Second Hand Smoke Exposure: No Use of substances other than those prescribed or required for medical reasons: No Are you DNR?: No Advance Directives: No Advance Directives Information Provided: Yes Poor oral hygiene: No service: No Current occupational status: employed Cognitive needs: No Hearing needs: No Vision needs: Yes (Glasses) Meds Allergies Allergy/AdvReac Type Severity Reaction Status Date / Time No Known Allergies Allergy Mild NONE Verified 11/30/24 09:39 Home Medications ?Medication ?Instructions ?Recorded ?Confirmed ?Last Taken ?Type irbesartan 150 mg tablet 150 mg PO DAILY 12/13/24 12/13/24 Unknown History sildenafil 100 mg tablet 50 mg PO DAILY PRN sexual activity 12/13/24 12/13/24 Unknown History simvastatin 5 mg tablet 5 mg PO QPM 12/13/24 12/13/24 Unknown History Exam Pertinent Lab Results Pertinent Lab Results: Laboratory Tests 08/30/24 07:25 WBC 4.4 L Hgb 13.8 L Hct 38.5 L Plt Count 195 Sodium 140 Potassium 3.9 Chloride 103 Carbon Dioxide 31 H BUN 14 Creatinine 0.77 Assessment and Plan Assessment Anesthesia Assessment: Chart Reviewed Documented by User: Nadia Vasquez MD 12/17/24 08:38 [facility] Past Medical History Medical History Heart murmur Hesitancy of micturition Opioid use disorder Anxiety and depression Opioid abuse Hypercholesterolemia Vitamin D deficiency Low back pain COPD (chronic obstructive pulmonary disease) Hypertension Family History Family History Father CHF (congestive heart failure) Hypertension CVD (cardiovascular disease) Mother Dementia Depression with anxiety Maternal Grandmother Diabetes Maternal Grandfather Cancer Brother In good health Son In good health Family history of problems with anesthesia: No Surgical History Surgical History History of eyelid surgery H/O colonoscopy History of basal cell carcinoma excision History of inguinal hernia repair History of Problems with Anesthesia: No Social History Social History Housing: Apartment Alcohol intake: current Alcohol intake frequency: holidays/special occasions only Comment: beer QD Patient Tobacco Use Status: Former Tobacco user Tobacco use type: Cigarette e-Cigarette/Vaping Use: Never Used Second Hand Smoke Exposure: No Use of substances other than those prescribed or required for medical reasons: No Are you DNR?: No Advance Directives: No Advance Directives Information Provided: Yes Poor oral hygiene: No service: No Current occupational status: employed Cognitive needs: No Hearing needs: No Vision needs: Yes (Glasses) Meds Allergies Allergy/AdvReac Type Severity Reaction Status Date / Time No Known Allergies Allergy Mild NONE Verified 11/30/24 09:39 Home Medications ?Medication ?Instructions ?Recorded ?Confirmed ?Last Taken ?Type irbesartan 150 mg tablet 150 mg PO DAILY 12/13/24 12/13/24 Unknown History sildenafil 100 mg tablet 50 mg PO DAILY PRN sexual activity 12/13/24 12/13/24 Unknown History simvastatin 5 mg tablet 5 mg PO QPM 12/13/24 12/13/24 Unknown History Exam Airway Mallampati Class: II TM Dist: >3cm Neck ROM: Full Heart: rrr Lungs: cta Assessment and Plan Assessment Anesthesia Assessment: Anesthesia Plan Discussed Final Anesthetic Review Family History of Problems with Anesthesia: No History of Problems with Anesthesia: No NPO: Yes ASA Class: III Final Preanesthetic Review: No Changes in Pt Med Stat, Meds/Allgs Chart Reviewed, Consent Obtained/Reviewed and Anes Risks/Benef Reviewed Patient Risk: Intermediate Procedure Risk: Low Anesthetic Plan Anesthetic Plan: MAC: and Agree w/ Assess. and Plan Disposition: Standard PACU
[2024-12-13 13:36] VITALS: BMI 23.5
[2024-12-17 06:47] VITALS: BMI 22.5
[2024-12-17 06:52] VITALS: BP 149/85; PULSE 61; RESP 16; TEMP 37.2; O2SAT 100
[2024-12-17] MEDS: Lactated Ringers 1,000 ML 100 ML IVCONT (07:10)
--- NOTE | 2024-12-17 07:56 | PC.NURSE ---
awaiting to be seen by anesthesia
[2024-12-17 08:48] VITALS: BP 88/49; PULSE 53; RESP 13; TEMP 36.3; O2SAT 99
--- NOTE | 2024-12-17 08:52 | P.BOP_ITS ---
Brief Operative Note Date of Service: 12/17/24 Pre-op diagnosis: Screening Post-op diagnosis: other (Polyps) Procedure: Colonoscopy to the cecum and TI with hot snare polypectomy of rectal polyp, and bx/removal of polyps Surgeon: Brooks Nobles MD Anesthesia: MAC Was an Hair Salon Manager used for this Procedure?: No Estimated blood loss (mL): 2.0 Pathology: other (A. Transverse colon polyp B. Polyp at 40cm C. Rectal polyp) Condition: stable Disposition: PACU
[2024-12-17 08:56] VITALS: BP 97/53; PULSE 46; RESP 14; O2SAT 99
[2024-12-17 09:06] VITALS: BP 97/53; PULSE 49; RESP 14; O2SAT 100
[2024-12-17 09:17] VITALS: BP 93/55; PULSE 48; RESP 14; O2SAT 99
--- NOTE | 2024-12-17 09:27 | OP_ITS ---
DATE OF SERVICE: 12/17/2024 SURGEON: Brooks Nobles MD INDICATIONS: The patient presents for evaluation of colorectal cancer screening and personal history of tubular adenomas of the colon. Full consent has been obtained from him for this, including risks of bleeding and perforation. PREOPERATIVE DIAGNOSIS: POSTOPERATIVE DIAGNOSIS: PROCEDURE PERFORMED: Colonoscopy to the cecum and terminal ileum with hot snare polypectomy, and biopsy and removal of polyps. ESTIMATED BLOOD LOSS: COMPLICATIONS: ANESTHESIA: Monitored anesthesia care. ASSISTANTS: SPECIMENS: PREOPERATIVE DIAGNOSES: Colorectal cancer screening and personal history of tubular adenomas of the colon. POSTOPERATIVE DIAGNOSES: Colorectal cancer screening and personal history of tubular adenomas of the colon, colon polyps, diverticulosis, and internal hemorrhoids. DESCRIPTION OF PROCEDURE: The patient was placed in the left lateral decubitus position. The digital rectal exam revealed no abnormalities. The Olympus video pediatric colonoscope was entered into the rectum and advanced easily to the cecum. Once in the cecum, I did identify normal-appearing cecal pouch with appendiceal orifice and a normal-appearing ileocecal valve. The terminal ileum was cannulated and appeared normal. The scope was withdrawn back in the colon. The entire cecum and ileocecal valve appeared normal. The scope was slowly withdrawn assessing all mucosal surfaces carefully. Preparation was excellent. In the transverse colon and at 40 cm were less than 5 mm polyps, which were each biopsied and completely removed with a cold biopsy forceps. In the rectum was an approximately 10 to 12 mm polyp, which was removed by hot snare polypectomy and then recovered by withdrawing on the tip of the scope. The scope was advanced back into the colon. The polypectomy site appeared clean, without any sign of residual polyp nor bleeding. I did not visualize any other polyps, colitis, nor angiodysplasia. There was a mild amount of sigmoid diverticulosis. In the rectum, scope was retroflexed visualizing internal hemorrhoids, but no other pathology. The scope was straightened and withdrawn from the patient. He tolerated the procedure well and was returned to the recovery area in stable condition. IMPRESSION: 1. Colon polyps. 2. Diverticulosis. 3. Internal hemorrhoids. PLAN: The results of the pathology will be checked. I would recommend a repeat colonoscopy in 5 years. He was advised not to use any aspirin nor NSAIDs for 1 week. MD NATACHA English/ALWANDA / [id number]
[2024-12-17 09:31] VITALS: BP 92/59; PULSE 48; RESP 14; TEMP 36.4; O2SAT 100
== END 2024-12-17 09:47 | disposition home or self-care (01) ==
PROVIDERS: PCP Internal Medicine; Visit Provider Internal Medicine
PROC: 0DJD8ZZ Inspection of Lower Intestinal Tract, Via Natural or Artificial Opening Endoscopic (ICD-10-PCS; CPT 45378; principal; 2024-12-17 07:30)
DX: Z12.11 Encounter for screening for malignant neoplasm of colon (principal); Z86.0101 Personal history of adenomatous and serrated colon polyps; D12.3 Benign neoplasm of transverse colon; D12.5 Benign neoplasm of sigmoid colon; D12.8 Benign neoplasm of rectum; K57.30 Diverticulosis of large intestine without perforation or abscess without bleeding; K64.8 Other hemorrhoids; I10 Essential (primary) hypertension; E78.5 Hyperlipidemia, unspecified; J44.9 Chronic obstructive pulmonary disease, unspecified; Z85.828 Personal history of other malignant neoplasm of skin; Z79.51 Long term (current) use of inhaled steroids; Z79.899 Other long term (current) drug therapy; Z98.890 Other specified postprocedural states
CPT/HCPCS: 45385; 45380; 88305; J2250; J2704

== ENCOUNTER 2025-01-30 13:19 | Outpatient (AMB) | payer BC, SELFPAY ==
--- OUTSIDE RECORDS SUMMARY | 2024-12-17 02:30 | XMS_ITS ---
Author Organization [facility] Address [address] [place] [address] Care Team Providers Care Wholesaler Name Role Phone Mc Ruiz MD Primary Care Provider Brooks Nation Unavailable [phone] REASON FOR VISIT screening, hx adenomatous polyp Encounters Encounter Location Date Provider Diagnosis [facility] [place] [facility] [address] [facility] [place] [id number] 12/17/2024 Brooks Nobles Plan Of Treatment No Information Progress Notes * FABRICIO IRENE JrDOB:1965 (59 yo M)Acc No.[id number]:12/17/2024 COLON WITH MAC Patient: FABRICIO DAMON Jr Provider: Stephen Nobles MD :1965 A ge:59 Y S ex:Male Date:12/17/2024 Address:[address] [place] [address] [address] [id number] Pcp:Mc Ruiz MD Subjective: * Chief Complaints: * 1 . Screening, hx adenomatous polyp. * Medical History: Objective: * Vitals: Assessment: Plan: * Treatment: * * The named appointment provid er may or may not be the originator of this progress note, and it is not deemed complete until electronically signed by the appointment provider. Sign off status: Pending * Provider: Stephen Nobles MD Date: 0 12/17/2024 Generated for Osbaldo prince/Alek/eTransmitting on: 04/01/2024 04:11 PM EST
--- NOTE | 2025-01-30 13:24 | MHC.OFFVIS ---
Vital Signs 01/30/25 13:28 Height 5 ft 11 in Weight 172 lb BMI 24.0 Pulse 62 Pulse Source Pulse Oximeter Pulse Oximetry (%) 98 Oxygen Delivery Method Room Air Intake Visit Reasons: MAT Allergies No Known Allergies Allergy (Mild, Verified 01/30/25 13:28) NONE HPI Comments Details: History of Present Illness The patient is a 59-year-old male presenting with Opioid Use Disorder. He was last attended by me in August and was subsequently seen by another provider in October for the same condition. During the October appointment, he received a prescription for Suboxone 12/3 mg daily. The patient then saw me November He has intermittently been taking the leftover medication or obtaining it from other sources to maintain stability, reporting some withdrawal symptoms today. Review of Systems - General: Reports withdrawal symptoms. - Neurological: Denies other symptoms. Physical Exam - Vitals- Stable. Results Plan Patient was informed and verbally consented to the use of an ambient scribe for clinic note documentation during this visit. 1. Opioid use, unspecified, uncomplicated F11.90 Continue Suboxone 12/3 mg sublingually daily. Emphasize the need for adherence to the medication and follow-up appointments monthly. Ensure to monitor treatment effectiveness and adjust as necessary. Patient should report any issues promptly. Discussion Notes I discussed with the patient the need for regular follow-ups and adhering to the prescribed Suboxone regimen to manage the Opioid Use Disorder effectively. I highlighted the benefits of remaining compliant with therapy to avoid withdrawal symptoms and promote recovery. He agreed to follow up in one month and to reach out if any issues arise. Medical Decision Making it is critical to stabilize the patient's Opioid Use Disorder with consistent medication and scheduled appointments. The recommended plan is intended to reduce withdrawal symptoms and support complete compliance and recovery. Continuation of Suboxone is justified based on the patient's reporting of withdrawal symptoms when not adhered to. Patient Instructions - Take Suboxone as prescribed, 12/3 mg daily. - Attend follow-up appointments every month. - Call if you notice any problems or have side effects. - Promise to stick to this plan and contact me if there's trouble. [facility] Medical History (Updated 01/30/25 @ 15:00 by Nallely Desai MD) Opioid use disorder Heart murmur Hesitancy of micturition Anxiety and depression Opioid abuse Hypercholesterolemia Vitamin D deficiency Low back pain COPD (chronic obstructive pulmonary disease) Hypertension Surgical History History of eyelid surgery H/O colonoscopy History of basal cell carcinoma excision History of inguinal hernia repair Family History Father CHF (congestive heart failure) Hypertension CVD (cardiovascular disease) Mother Dementia Depression with anxiety Maternal Grandmother Diabetes Maternal Grandfather Cancer Brother In good health Son In good health Social History Housing: Apartment Alcohol intake: current Alcohol intake frequency: holidays/special occasions only Comment: beer QD Patient Tobacco Use Status: Former Tobacco user Tobacco use type: Cigarette e-Cigarette/Vaping Use: Never Used Second Hand Smoke Exposure: No service: No Current occupational status: employed Cognitive needs: No Hearing needs: No Vision needs: Yes (Glasses) Physical Exam Vital Signs: Last Vital Signs Pulse 62 01/30/25 13:28 Pulse Ox 98 01/30/25 13:28 Oxygen Delivery Method Room Air 01/30/25 13:28 BMI result Body Mass Index 24.0 Assessment & Plan Assessment & Plan (1) Opioid use disorder: Code(s): F11.99 - Opioid use, unspecified with unspecified opioid-induced disorder Category: Medical Plan: as above Medications: New buprenorphine-naloxone 12-3 mg (Suboxone) 1 film sublingual Q24H 30 ea 0RF 30 days Coding Level of Care Code Est Pt Level 3 (65889) Diagnoses Opioid use disorder F11.99
[2025-01-30 13:28] VITALS: PULSE 62; O2SAT 98; BMI 24.0
--- OUTSIDE RECORDS SUMMARY | 2025-01-30 16:12 | XMS_ITS | Patient Health Record ---
Author Organization [facility] Address [address] [place] [address] Care Team Providers Care Home Health Outreach Coordinator Name Role Phone Mc Ruiz MD Primary Care Provider Brooks Nation Unavailable [phone] Allergies No Known Allergies Results Component Value Reference Range Notes Pathology (Not yet reviewed by provider) Interpretation: Performing Lab:[facility], [address] [place] [id number] Notes/Report: Reason For Referral Referring Provider First Name Mc Referring Provider Last Name Joseph Referring Provider Speciality Internal M edicine Referred Organization [facility] Referred Provider Brooks Nobles Referred Address [address] [facility],[address],[place], [place],[address], Referred Provider Specialty Gastroentero logy Referral Priority Routine Medications Medication SIG (Take, Route, Frequency, Duration) Notes Start Date End Date Status Sildenafil Citrate 50 MG Oral; Duration: 30 Days Active Budesonide-Formoterol Fumarate 160-4.5 MCG/ACT Inhalation; Duration: 30 Days Active Albuterol Sulfate HFA 108 (90 Base) MCG/ACT Inhalation; Duration: 25 Days Active Lisinopril-hydroCHLOROthiazi de 10-12.5 MG Oral; Duration: 30 Days Act aziza Buprenorphine HCl-Naloxone HCl 12-3 MG TAKE 1 FILM BUCCALLY EVERY 24 HOURS Sublingual; Duration: 13 Days Active Irbesartan 150 MG TAKE [...] Status Risk Notes Problem Colon cancer screening (772072167) Colon cancer screening (Z12.11) Active confirmed Problem Screening for malignant neoplasm of colon (443732798) Encounter for screening for malignant neoplasm of colon (Z12.11) Active confirmed Problem Preprocedural examination (379655801752293) Preprocedural examination (Z01.818) Active confirmed Problem History of adenomatous polyp of colon (625211810) History of adenomatous polyp of colon (Z86.0101) Active confirmed Vital Signs Temperature 97.8 degrees Fahrenheit 09/11/2024 Blood pressure diastolic 01 mm Hg 09/11/2024 Height 71 in 09/11/2024 Blood pressure systolic 001 mm Hg 09/11/2024 Weight 168.4 lbs 09/11/2024 BMI 23.48 kg/m2 09/11/2024 Procedures Procedure Date Ordered Date Performed Result Body Sit e COLONOSCOPY 09/11/2024 N/A Encounters Encounter Location Date Provider [place] [facility] [address] [place] [id number] 12/17/2024 Brooks Nobles [facility] [address] [place] [address] 09/11/2024 Brooks Nobles History of adenomato us [...] Test Test Name Order Date COLONOSCOPY 09/11/2024 Pathology 12/17/2024 Future Test Test Name Order Date COLONOSCOPY 11/28/2018 Insurance Providers Payer Name Payer Address Payer Phone Subscriber Number Group Number Insured Name Patient Relationship to Insured Coverage Start Date Coverage End Date [facility] [employer] [address] [place] [address] [id number] BRUCE IRENE Self - patient is the insured Medical (General) History Medical History History ICD Code Hypertension Denies [place],DM,CVA,renal disease COPD Hyperlipidemia Screening colonoscopy in Feb revealed several tubular adenomas that were removed Surgical History Surgery Date(Month/Year) basal cell removed Eye surgery as a child Hernia repair--left inguinal 2014
== END 2025-01-30 13:59 | disposition home or self-care (01) ==
PROVIDERS: PCP Internal Medicine; Visit Provider Internal Medicine
DX: F11.99 Opioid use, unspecified with unspecified opioid-induced disorder (principal)
CPT/HCPCS: 99213

== ENCOUNTER 2025-03-01 09:41 | Outpatient (AMB) | payer BC, SELFPAY ==
[2025-03-01 09:44] VITALS: PULSE 55; O2SAT 99; BMI 24.4
--- NOTE | 2025-03-01 09:44 | MHC.OFFVIS ---
Vital Signs 03/01/25 09:44 Height 5 ft 11 in Weight 175 lb BMI 24.4 Pulse 55 Pulse Source Pulse Oximeter Pulse Oximetry (%) 99 Oxygen Delivery Method Room Air Intake Visit Reasons: MAT Allergies No Known Allergies Allergy (Mild, Verified 03/01/25 09:45) NONE HPI Comments Details: History of Present Illness The patient is a 59 year old male presenting for follow-up of opioid use disorder and a medication refill. He is currently treated with Suboxone 12/3 mg taken once daily. He reports he is doing well on the current dosing and denies any complaints, constipation, or depression. Results [facility] Medical History (Updated 01/30/25 @ 15:00 by Nallely Desai MD) Opioid use disorder Heart murmur Hesitancy of micturition Anxiety and depression Opioid abuse Hypercholesterolemia Vitamin D deficiency Low back pain COPD (chronic obstructive pulmonary disease) Hypertension Surgical History History of eyelid surgery H/O colonoscopy History of basal cell carcinoma excision History of inguinal hernia repair Family History Father CHF (congestive heart failure) Hypertension CVD (cardiovascular disease) Mother Dementia Depression with anxiety Maternal Grandmother Diabetes Maternal Grandfather Cancer Brother In good health Son In good health Social History Housing: Apartment Alcohol intake: current Alcohol intake frequency: holidays/special occasions only Comment: beer QD Patient Tobacco Use Status: Former Tobacco user Tobacco use type: Cigarette e-Cigarette/Vaping Use: Never Used Second Hand Smoke Exposure: No service: No Current occupational status: employed Cognitive needs: No Hearing needs: No Vision needs: Yes (Glasses) Review of Systems Narrative Review of Systems - Constitutional: Denies any complaints. - Gastrointestinal: Denies constipation. - Psychiatric: Denies depression. Physical Exam Exam Exam: Physical Exam - Vitals: Stable. Vital Signs: Last Vital Signs Pulse 55 03/01/25 09:44 Pulse Ox 99 03/01/25 09:44 Oxygen Delivery Method Room Air 03/01/25 09:44 BMI result Body Mass Index 24.4 Assessment & Plan Assessment & Plan (1) Opioid use disorder: Code(s): F11.99 - Opioid use, unspecified with unspecified opioid-induced disorder Category: Medical Plan Plan Patient was informed and verbally consented to the use of an ambient scribe for clinic note documentation during this visit. 1. Opioid Use Disorder, Uncomplicated The patient is doing well on his current dose of Suboxone. The plan is to continue Suboxone 12/3 mg once daily. A prescription for 60 tablets with two refills will be provided. He will follow up as scheduled. Discussion Notes I have discussed with the patient that he is doing well on his current Suboxone regimen. I informed him that I will continue his Suboxone 12/3 mg daily and provide a prescription for 60 tablets with two refills. We agreed that he will return for follow-up as scheduled. Medical Decision Making The patient presents for a follow-up visit for opioid use disorder. He is stable on his current medication-assisted treatment with Suboxone 12/3 mg daily, reporting no complaints or side effects such as constipation or depression. Given his stability and need for a medication refill, the decision is to continue his current regimen. A new prescription will be issued, and he will continue with his scheduled follow-up appointments. Patient Instructions - Continue to take your Suboxone 12/3 mg once every day as directed. - A new prescription for 60 tablets with two refills has been sent to your pharmacy. - Please return for your next visit as it is scheduled. Medications: New buprenorphine-naloxone 12-3 mg (Suboxone) 1 film sublingual Q24H 60 ea 2RF 30 days Coding Level of Care Code Est Pt Level 3 (37444) Diagnoses Opioid use disorder F11.99
== END 2025-03-01 09:58 | disposition home or self-care (01) ==
LOC: HO.HCC 09:41
PROVIDERS: PCP Internal Medicine; Visit Provider Internal Medicine
DX: F11.99 Opioid use, unspecified with unspecified opioid-induced disorder (principal)
CPT/HCPCS: 99213